=== PATIENT | female | born 2000 | race African-American/Black ===

== ENCOUNTER 2025-07-03 15:12 | Outpatient (CLI) | payer OTHER, SELFPAY ==
--- NOTE | ~2025-07-03 | US_ITS ---
EXAMINATION: US OB <=14 wk fetus w TV DATE: 07/03/2025 16:06 INDICATION: Threatened TECHNIQUE: Real-time transabdominal and transvaginal obstetric ultrasound. FINDINGS: No prior studies for comparison. The uterus measures 8.1 x 4.5 x 7.8 cm. There is an intrauterine gestational sac, with pole identified. The crown rump length measures 0.64 cm, which correlates with a estimated gestational age of 6 weeks 3 days. heart tones are identified measuring 133 BPM. Ovaries within normal limits. IMPRESSION: 1. SL IUP with an EGA of 6 weeks, 3 days (EDC by current ultrasound of 02/23/2026). Reviewed, dictated and finalized at location O. ICAL SERVICES TECH IMPRESSION: 1. SL IUP with an EGA of 6 weeks, 3 days (EDC by current ultrasound of ).
--- OUTSIDE RECORDS SUMMARY | 2025-07-03 16:50 | XMS_ITS | Patient Health Record ---
Author Organization [facility] Address [address] [place], [place] [id number] Care Team Providers Care Underwater Hunter Name Role Phone Gio Ureña Unavailable Unavailable Allergies Allergen (clinical drug ingredient) Drug/Non Drug Allergy documented on EMR Reaction Allergy Type Onset Date Status azithromycin Azithromycin Unknown Drug Allergy A ctive Reason For Referral No Information Medications Medication SIG (Take, Route, Frequency, Duration) Notes Start Date End Date Status NuvaRing Active Immunizations Vaccine Route Administration Date Status Comme nts Influenza, unspecified formulation Unknown 05/13/2023 A dministered Social History Tobacco Use: Social History Observation Description Date Details (start date - stop date) Never Smoker NA - NA Social History Tobacco Use: Social Info Question Answer Notes Tobacco Use/Smoking Tobacco use: nonsmoker Additional Details Category Social Info Options Details Drugs/Alcohol: Do you drink alcohol? Yes, Socially Plan Of Treatment No Information Insurance Providers Payer Name Payer Address Payer Phone Subscriber Number Group Number Insured Name Patient Relationship to Insured Coverage Start Date Coverage End Date [employer] O [address] [place], [place] [phone] [id number] Romulo Cruz Self - patient is the insured
--- OUTSIDE RECORDS SUMMARY | 2025-07-03 16:50 | XMS_ITS | Clinical Summary ---
Author Organization [facility] Address [address] [place] [address] Care Team Providers Care Monotype Operator Name Role Phone Unavailable Primary Care Provider Unavailabl e Social History Tobacco Use Types Packs/Day Years Used Date Smoking Tobacco: Never Assessed Comments Unknown Sex and Gender Information Value Date Recorded Sex Assigned at Not on file Legal Sex Female 2:43 PM [employer]IGHT [employer] Gender Identity Not on file Sexual Orientation Not on file Plan of Treatment Health Maintenance Due Date Last Done Comments Hepatitis C Virus (HCV) Screening 1998 TdaP Immunization 1998 Human Papillomavirus (HPV) Immunization (1 - 3-dose series) 2013 Hepatitis B Immunization (1 of 3 - 19+ 3-dose series) 2017 Influenza Immunization (#1) 2025 SARS-COV-2 Immunization ( - season) 2025 Respiratory Syncytial Virus (RSV) Immunization (Adult) (1 - 1-dose 75+ series) 2073 Meningococcal Immunization (ACWY) Aged Out No longer eligible based on patient's age to complete this topic Pneumococcal Immunization Combined Aged Out No longer eligible based on patient's age to complete this topic Rotavirus Immunization Aged Out No lo nger eligible based on patient's age to complete this topic
--- OUTSIDE RECORDS SUMMARY | 2025-07-03 16:51 | XMS_ITS | Data Portability ---
Author Organization [facility], [employer] Address [address] [address] Assessment Encounter Date Assessment Date Assessment LastModified by Organization Details LastModified Time 12/17/2020 12/17/2020 Patient presente d to office today for their Medicare Annual Wellness Visit. Education was provided on healthy nutrition, including a diet rich in fruits and vegetables, minimizing simple carbohydrates, salt, and saturated fats. Encouraged regular cardiovascular exercise such as walking at least 30 minutes daily, 5 times per week. Emphasized preventive health measures and educated pt on fall prevention and community-based lifestyle interventions to help reduce health risks and promote healthy living. Not available 12/17/2020 20:39:44 02/11/2022 02/11/2022 Recommended healthy nutrition, including a diet rich in fruits and vegetables, minimizing simple carbohydrates, salt, and saturated fats. Encouraged regular cardiovascular exercise such as walking at least 30 minutes daily, 5 times per week. Not available 02/11/2022 16:58:22 02/16/2023 02/16/2023 Recommends healthy nutrition, including a diet rich in fruits and vegetables, minimizing simple carbohydrates, salt, and saturated fats. Encouraged regular cardiovascular exercise such as walking at least 30 minutes daily, 5 times per week. Emphasized preventive health measures and educated pt on fall prevention and community-based lifestyle interventions to help reduce health risks and promote healthy living. Not available 02/16/2023 13:40:48 02/25/2024 02/25/2024 Patient presente d to office today for their Medicare Annual Wellness Visit. Education was provided on healthy nutrition, including a diet rich in fruits and vegetables, minimizing simple carbohydrates, salt, and saturated fats. Encouraged regular cardiovascular exercise such as walking at least 30 minutes daily, 5 times per week. Emphasized preventive health measures and educated pt on fall prevention and community-based lifestyle interventions to help reduce health risks and promote healthy living. Recommends healthy nutrition, including a diet rich in fruits and vegetables, minimizing simple carbohydrates, salt, and saturated fats. Encouraged regular cardiovascular exercise such as walking at least 30 minutes daily, 5 times per week. Emphasized preventive health measures and educated pt on fall prevention and community-based lifestyle interventions to help reduce health risks and promote healthy living. Not available 02/25/2024 17:33:55 Plan of Treatment Reminders Order Date Submit Date Provider Last Modified By Organization Details Last Modified Time Details Appointments None recorded. Lab lipid panel, serum 2023 024 [email or web address] [facility], [address], [address], [place], [address], 4 09:02:29 CMP, serum or plasma 2023 024 Wire [facility], [address], [address], [place], [address], 4 09:02:28 CBC w/ auto diff 2023 024 Wire [facility], [address], [address], [place], [address], 4 09:02:28 CT + NG + TV, RNA, unspecifie d specimen 2022 023 [employer] [facility], [address], [address], [place], [address], 3 13:54:02 RPR (rapid plasma reagin), titer, serum 2022 023 3TIER [facility], [address], [address], [place], [address], 3 13:54:01 hsv (1+2) igg Ab, serum 2022 023 [employer]TIER [facility], [address], [address], [place], [address], 3 13:54:00 hsv (1+2) igm Ab, quant, serum, reflex titer 2022 [facility], [address], [address], [place], [address], 3 13:53:58 hepatitis panel (A+B+C), acute, serum 2022 023 [facility], [address], [address], [place], [address], 3 09:58:38 HIV 1+2 Ab + HIV1 p24 Ag, quantitati ve immunoassa y, serum 2022 023 [facility], [address], [address], [place], [address], 3 09:58:39 CMP, serum or plasma [address], [address], [address], [place], [address], 3 09:10:08 lipid panel, serum [address], [address], [address], [place], [address], 3 09:10:08 CBC w/ auto diff [address], [address], [address], [place], [address], 3 09:10:09 CBC w/ auto diff 2021 022 [facility], [address], [address], [place], [address], 2 08:26:26 CMP, serum or plasma 2021 022 [facility] Jenn Rykert [facility], [address], [address], [place], [address], 2 08:26:26 lipid panel, serum 2021 022 [facility] Jenn Rykert [facility], [address], [address], [place], [address], 2 08:26:27 TSH + free T4, serum 2021 022 [facility] Jenn Rykert [facility], [address], [address], [place], [address], 2 08:26:27 CMP, serum or plasma 2020 021 [employer] [facility], [address], [address], [place], [address], 1 10:23:38 TSH + free T4, serum 2020 021 LUKE Jenn Rykert [facility], [address], [address], [place], [address], 1 10:23:37 T3, free, serum or plasma 2020 021 [employer] [facility], [address], [address], [place], [address], 1 10:23:39 iron + TIBC + ferritin, serum 2020 021 TAMPA Jenn Rykert [facility], [address], [address], [place], [address], 1 10:23:34 CBC w/ auto diff 2020 021 [facility], [address], [address], [place], [address], 1 10:23:38 CT + NG + TV, RNA, unspecifie d specimen 2020 021 [facility], [address], [address], [place], [address], 1 20:45:20 RPR (rapid plasma reagin), titer, serum 2020 021 [facility], [address], [address], [place], [address], 1 20:45:13 hsv (1+2) igg Ab, serum 2020 021 [facility], [address], [address], [place], [address], 1 20:45:14 hepatitis panel (A+B+C), acute, serum 2020 021 [facility], [address], [address], [place], [address], 1 10:23:35 HIV 1+2 Ab + HIV1 p24 Ag, quantitati ve immunoassa y, serum 2020 021 [facility], [address], [address], [place], [address], 1 10:23:36 hepatitis C virus Ab, serum 2020 021 [facility], [address], [address], [place], [address], 1 09:02:[address] referral 2023 024 [facility], [address], [place], [address], 5 08:06:[address] referral 2022 023 [facility], [address], [place], [address], 4 09:54:27 sleep medicine referral 2021 022 LUKE Paris MD, [address] [place], [address], 2 18:08:52 ENT referral 2020 021 LUKE Jones MD, [address], [place], [address], 1 21:21:[address] referral 2018 019 [email or web address] Not available 9 09:00:13 ENT referral 2018 019 LUKE Jones MD, [address], [place], [address], 9 11:04:30 Procedures None recorded. Surgeries None recorded. Imaging US, head + neck, soft tissue 2020 021 [facility] [address] [place], [address], 1 09:02:24 Medication Orders None recorded. Patient TargetsNo targets recorded. Patient Instructions Encounter Date Encounter Id Patient Instructions Last Modified By Organization Details Last Modified Time 09/20/2018 [id number] advised to lose weight Not available 09/20/2018 13:52:01 medicare preventive services guide Not available 09/20/2018 13:52:01 advance care planning: care instructions Not available 09/20/2018 13:52:01 12/17/2020 [id number] advised to lose weight Not available 12/17/2020 20:45:01 02/11/2022 [id number] advised to lose weight [email or web address] Not available 02/11/2022 17:02:19 02/16/2023 [id number] medicare preventive services guide [email or web address] Not available 02/16/2023 13:53:13 advance care planning: care instructions [facility] Not available 02/16/2023 13:53:14 Discussed and explained advance directives such as standard forms to the . Face to face discussion lasted for a duration of ___ minutes. [email or web address] Not available 02/16/2023 12:58:59 02/25/2024 [id number] Discussed and explained advance directives such as standard forms to the . Face to face discussion lasted for a duration of ___ minutes. [email or web address] Not available 02/25/2024 17:10:54 Reason for Referral ENT Referral for Ringing in ear Referring Physician: [facility], Encounter Date: 09/20/2018 Rad Tech Referral for Ta chycardia Referring Physician: [facility], Encounter Date: 09/20/2018 ENT Referral for Lymphadenop athy Referring Physician: Gio [facility], Encounter Date: 12/17/2020 Sleep Medicine Referral for Snoring Referring Physician: Gio [facility], Encounter Date: 02/11/2022 Spray Operator Referral for Sc reening for malignant neoplasm of cervix Referring Physician: [facility], Encounter Date: 02/16/2023 Spray Operator Referral for Sc reening for malignant neoplasm of cervix Referring Physician: Gio Ure[facility], Encounter Date: 02/25/2024 Results Created Date Observation Date Name Description Value Unit Range Abnormal Flag Note LastModifiedBy Organization Detail LastModifiedTime 12/05/1912/05/2018 lipid panel , serum cholesterol, total 226 mg/dL <200 high Not Available [employer] [facility] [address] [place], [address], 12/05/2018 07:58:29 12/05/1912/05/2018 lipid panel , serum HDL cholesterol 107 mg/dL >50 normal Not Available [facility] [employer] [address] [address] [place], [address], 12/05/2018 07:58:29 12/05/1912/05/2018 lipid panel , serum triglyceride s 77 mg/dL <150 normal Not Available Jenn [employer] [address] [address] [place], [address], 12/05/2018 07:58:29 12/05/1912/05/2018 lipid panel , serum LDL-choleste rol 102 mg/dL _(tami c) high Refer ence range : <100 Dayami able range <100 mg/dL for prima ry preve ntion ; <70 mg/dL for patie nts with CHD or diabe tic patie nts with > or = 2 CHD risk facto rs. LDL-C is now calcu lated using the Ines schultz-Hop kins reynold quintanilla n, which is a valid ated novel daniel robertson r accur acy than the Fried salty equat ion in the estim ation of LDL-C . Ines schultz SS et al. GUSTAVO. 2013; 310(1 9): 2061- 2068 (http ://ed ucati on.Qu Aneudy WhenU.com. com/f aq/FA Q164) Not Available [address] [address] [place], [address], 12/05/2018 07:58:29 12/05/1912/05/2018 lipid panel , serum chol/HDLC ratio 2.1 (calc ) <5.0 normal Not Available Jenn Rykert [address] [address] [place], [address], 12/05/2018 07:58:29 12/05/1912/05/2018 lipid panel , serum non HDL cholesterol 119 mg/dL _(tami c) <130 normal For patie nts with diabe jayson plus 1 major ASCVD risk facto r, treat ing to a non-H DL-C goal of <100 mg/dL (LDL- C of <70 mg/dL ) is consi dered a thera rolandoi c optio n. Not Available [address], [address], 12/05/2018 07:58:29 12/05/1912/05/2018 TSH + free T4, serum TSH 1.62 mIU/L normal Refer ence Range > or = 20 Years 0.40- 4.50 Pregn reno Range s First trime ster 0.26- 2.66 Secon d trime ster 0.55- 2.73 Third trime ster 0.43- 2.91 Not Available [address], [address], 12/05/2018 07:58:30 12/05/1912/05/2018 TSH + free T4, serum T4, free 1.3 NG/dL 0.8-1. 4 normal Not Available [address], [address], 12/05/2018 07:58:30 12/05/1912/05/2018 CMP, serum or plasm a glucose 83 mg/dL 65-99 normal Fasti ng refer ence inter alexi Not Available [address], [address], 12/05/2018 07:58:30 12/05/1912/05/2018 CMP, serum or plasm a urea nitrogen (BUN) 11 mg/dL 7-25 normal Not Available [address], [address], 12/05/2018 07:58:30 12/05/1912/05/2018 CMP, serum or plasm a creatinine 0.87 mg/dL 0.50-1 .10 normal Not Available [address], [address], 12/05/2018 07:58:30 12/05/1912/05/2018 CMP, serum or plasm a eGFR non-afr. citizen [place] 96 mL/mi n/1.7 3m2 > or = 60 normal Not Available [address], [address], 12/05/2018 07:58:30 12/05/19 19 12/05/2018 CMP, serum or plasm a eGFR 111 mL/mi n/1.7 3m2 > or = 60 normal Not Available [address], [address], 12/05/2018 07:58:30 12/05/19 19 12/05/2018 CMP, serum or plasm a BUN/creatini ne ratio NOT APPLIC ABLE (calc ) 6-22 Not Available [address], [address], 12/05/2018 07:58:30 12/05/19 19 12/05/2018 CMP, serum or plasm a sodium 137 mmol/ L 135-14 6 normal Not Available [address], [address], 12/05/2018 07:58:30 12/05/19 19 12/05/2018 CMP, serum or plasm a potassium 4.2 mmol/ L 3.5-5. 3 normal Not Available [address], [address], 12/05/2018 07:58:30 12/05/1912/05/2018 CMP, serum or plasm a chloride 105 mmol/ L 98-110 normal Not Available [address], [address], 12/05/2018 07:58:30 12/05/1912/05/2018 CMP, serum or plasm a carbon dioxide 22 mmol/ L 20-32 normal Not Available [address], [address], 12/05/2018 07:58:30 12/05/19 19 12/05/2018 CMP, serum or plasm a calcium 10.3 mg/dL 8.6-10 .2 high Not Available [address], [address], 12/05/2018 07:58:30 12/05/1912/05/2018 CMP, serum or plasm a protein, total 7.9 g/dL 6.1-8. 1 normal Not Available [address], [address], 12/05/2018 07:58:30 12/05/1912/05/2018 CMP, serum or plasm a albumin 4.5 g/dL 3.6-5. 1 normal Not Available [address], [address], 12/05/2018 07:58:30 12/05/1912/05/2018 CMP, serum or plasm a globulin 3.4 g/dL_ (calc ) 1.9-3. 7 normal Not Available [address], [address], 12/05/2018 07:58:30 12/05/1912/05/2018 CMP, serum or plasm a albumin/glob ulin ratio 1.3 (calc ) 1.0-2. 5 normal Not Available [address], [address], 12/05/2018 07:58:30 12/05/1912/05/2018 CMP, serum or plasm a bilirubin, total 0.6 mg/dL 0.2-1. 2 normal Not Available [address], [address], 12/05/2018 07:58:30 12/05/1912/05/2018 CMP, serum or plasm a alkaline phosphatase 66 U/L 33-115 normal Not Available [facility] [employer] [address], [address], 12/05/2018 07:58:30 12/05/1912/05/2018 CMP, serum or plasm a AST 14 U/L 10-30 normal Not Available [address], [address], 12/05/2018 07:58:30 12/05/19 19 12/05/2018 CMP, serum or plasm a ALT 8 U/L 6-29 normal Not Available [address], [address], 12/05/2018 07:58:30 12/05/1912/05/2018 CBC w/ auto diff white blood cell count 6.1 thous and/u L 3.8-10 .8 normal Not Available [address], [address], 12/05/2018 07:58:31 12/05/1912/05/2018 CBC w/ auto diff red blood cell count 5.34 juan josé on/uL 3.80-5 .10 high Not Available [address], [address], 12/05/2018 07:58:31 12/05/1912/05/2018 CBC w/ auto diff hemoglobin 14.2 g/dL 11.7-1 5.5 normal Not Available [address], [address], 12/05/2018 07:58:31 12/05/1912/05/2018 CBC w/ auto diff hematocrit 44.5 % 35.0-4 5.0 normal Not Available [address], [address], 12/05/2018 07:58:31 12/05/1912/05/2018 CBC w/ auto diff MCV 83.3 fL 80.0-1 00.0 normal Not Available [address], [address], 12/05/2018 07:58:31 12/05/19 19 12/05/2018 CBC w/ auto diff MCH 26.6 pg 27.0-3 3.0 low Not Available [address], [address], 12/05/2018 07:58:31 12/05/19 19 12/05/2018 CBC w/ auto diff MCHC 31.9 g/dL 32.0-3 6.0 low Not Available [address], [address], 12/05/2018 07:58:31 12/05/19 19 12/05/2018 CBC w/ auto diff RDW 13.6 % 11.0-1 5.0 normal Not Available [address], [address], 12/05/2018 07:58:31 12/05/1912/05/2018 CBC w/ auto diff platelet count 380 thous and/u L 140-40 0 normal Not Available [address], [address], 12/05/2018 07:58:31 12/05/1912/05/2018 CBC w/ auto diff MPV 10.3 fL 7.5-12 .5 normal Not Available [address], [address], 12/05/2018 07:58:31 12/05/1912/05/2018 CBC w/ auto diff absolute neutrophils 3953 cells /uL 1500-7 800 normal Not Available [address], [address], 12/05/2018 07:58:31 12/05/1912/05/2018 CBC w/ auto diff absolute lymphocytes 1745 cells /uL 850-39 00 normal Not Available [address], [address], 12/05/2018 07:58:31 12/05/19 19 12/05/2018 CBC w/ auto diff absolute monocytes 299 cells /uL 200-95 0 normal Not Available [address], [address], 12/05/2018 07:58:31 12/05/19 19 12/05/2018 CBC w/ auto diff absolute eosinophils 61 cells /uL 15-500 normal Not Available [address], [address], 12/05/2018 07:58:31 12/05/1912/05/2018 CBC w/ auto diff absolute basophils 43 cells /uL 0-200 normal Not Available [address], [address], 12/05/2018 07:58:31 12/05/1912/05/2018 CBC w/ auto diff neutrophils 64.8 % normal Not Available [address], [address], 12/05/2018 07:58:31 12/05/1912/05/2018 CBC w/ auto diff lymphocytes 28.6 % normal Not Available [address], [address], 12/05/2018 07:58:31 12/05/1912/05/2018 CBC w/ auto diff monocytes 4.9 % normal Not Available [address], [address], 12/05/2018 07:58:31 12/05/1912/05/2018 CBC w/ auto diff eosinophils 1.0 % normal Not Available [address], [address], 12/05/2018 07:58:31 12/05/19 19 12/05/2018 CBC w/ auto diff basophils 0.7 % normal Not Available [address], [address], 12/05/2018 07:58:31 12/05/19 19 12/05/2018 T3, free, serum or plasm a T3, free 2.7 pg/mL 3.0-4. [address] to have a fermin peraza copy faxed has been ignacio mendezedg [place] to: [phone] 1 Not Available [address], [address], 12/05/2018 07:58:31 12/20/19 21 12/21/2020 iron + TIBC + kumar tin, serum iron, total 97 mcg/d L 40-190 normal Not Available [address], [address], 12/21/2020 10:23:34 12/20/19 21 12/21/2020 iron + TIBC + kumar tin, serum iron binding capacity 407 mcg/d L_(ca lc) 250-45 0 normal Not Available [address], [address], 12/21/2020 10:23:34 12/20/19 21 12/21/2020 iron + TIBC + kumar tin, serum % saturation 24 %_(ca lc) 16-45 normal Not Available [address], [address], 12/21/2020 10:23:34 12/20/19 21 12/21/2020 iron + TIBC + kumar tin, serum ferritin 10 NG/mL 16-154 low Not Available [address], [address], 12/21/2020 10:23:34 12/20/19 21 12/21/2020 hepat itis panel (A+B+ C), acute , serum hepatitis A IgM NON-RE ACTIVE non-re active normal For addit ional infor avi garnica e refer to http: //edu catio n.que stdia gnost ics.c om/fa q/FAQ 202 (This link is being provi ded for infor julisa ambrose/ sofiya vizcarra purpo ses only. ) Not Available [address] [address] [place], [address], 12/21/2020 10:23:35 12/20/19 21 12/21/2020 hepat itis panel (A+B+ C), acute , serum hepatitis B surface antigen NON-RE ACTIVE non-re active normal Not Available [facility] [address] [address] [place], [address], 12/21/2020 10:23:35 12/20/19 21 12/21/2020 hepat itis panel (A+B+ C), acute , serum hepatitis B core antibody (IgM) NON-RE ACTIVE non-re active normal Not Available [facility] [address] [address] [place], [address], 12/21/2020 10:23:35 12/20/19 21 12/21/2020 hepat itis panel (A+B+ C), acute , serum hepatitis C antibody NON-RE ACTIVE non-re active normal Not Available [facility] [address] [address] [place], [address], 12/21/2020 10:23:35 12/20/1912/21/2020 hepat itis panel (A+B+ C), acute , serum index 0.01 <1.00 normal HCV antib geo was non-r eacti ve. There is no labor atory evide nce of HCV infec tion. In most cases , no furth er actio n is requi red. Howev er, if recen t HCV expos ure is suspe cted, a test for HCV RNA (test code 64026 ) is sugge sted. For addit ional infor matlucy n pleas e refer to http: //[facility] n.que stdia gnost ics.c om/fa q/FAQ 22v1 (This link is being provi ded for infor matio nal/ educa sami l purpo ses only. ) Not Available [employer] [facility] [address] [place], [address], 12/21/2020 10:23:35 12/20/19 21 12/21/2020 HIV 1+2 Ab + HIV1 p24 Ag, quant itati ve immun oassa y, serum HIV Ag/Ab, 4TH gen NON-RE ACTIVE non-re active normal HIV-1 antig en and HIV-1 /HIV- 2 antib odies were not detec shubham. There is no labor atory evide nce of HIV infec tion. PLEAS E NOTE: This infor julisa n has been discl osed to you from recor ds whose confi denti ality may be prote cted by state law. If your state requi res such prote ction , then the state law prohi bits you from edda g any furth er discl osure of the infor matio n witho ut the speci fic writt en conse nt of the perso n to whom it perta ins, or as other garcia permi tted by law. A gener al autho rizat ion for the relea se of medic al or other infor matio n is NOT suffi cient for this purpo se. For addit ional infor matio n pleas e refer to http: //[facility] shandra schultz.que stdia gnost ics.c om/fa q/FAQ 106 (This link is being provi ded for infor matio nal/ educa sami l purpo ses only. ) The perfo rmanc e of this assay has not been clini blair valid ated in patie nts less than 2 years old. Not Available [facility] [employer] [facility] [address] [address], [place], [address], 12/21/2020 10:23:36 12/20/1912/21/2020 TSH + free T4, serum TSH 1.31 mIU/L normal Refer ence Range > or = 20 Years 0.40- 4.50 Pregn reno Range s First trime ster 0.26- 2.66 Secon d trime ster 0.55- 2.73 Third trime ster 0.43- 2.91 Not Available [address], [address], 12/21/2020 10:23:37 12/20/19 21 12/21/2020 TSH + free T4, serum T4, free 1.3 NG/dL 0.8-1. 8 normal Not Available [address], [address], 12/21/2020 10:23:37 12/20/19 21 12/21/2020 CMP, serum or plasm a glucose 83 mg/dL 65-99 normal Fasti ng refer ence inter alexi Not Available [address], [address], 12/21/2020 10:23:38 12/20/19 21 12/21/2020 CMP, serum or plasm a urea nitrogen (BUN) 10 mg/dL 7-25 normal Not Available [address], [address], 12/21/2020 10:23:38 12/20/1912/21/2020 CMP, serum or plasm a creatinine 0.79 mg/dL 0.50-1 .10 normal Not Available [address], [address], 12/21/2020 10:23:38 12/20/19 21 12/21/2020 CMP, serum or plasm a eGFR non-afr. citizen [place] 106 mL/mi n/1.7 3m2 > or = 60 normal Not Available [address], [address], 12/21/2020 10:23:38 12/20/19 21 12/21/2020 CMP, serum or plasm a eGFR 123 mL/mi n/1.7 3m2 > or = 60 normal Not Available [address], [address], 12/21/2020 10:23:38 12/20/19 21 12/21/2020 CMP, serum or plasm a BUN/creatini ne ratio NOT APPLIC ABLE (calc ) 6-22 Not Available [address], [address], 12/21/2020 10:23:38 12/20/19 21 12/21/2020 CMP, serum or plasm a sodium 139 mmol/ L 135-14 6 normal Not Available [address], [address], 12/21/2020 10:23:38 12/20/19 21 12/21/2020 CMP, serum or plasm a potassium 4.1 mmol/ L 3.5-5. 3 normal Not Available [address], [address], 12/21/2020 10:23:38 12/20/19 21 12/21/2020 CMP, serum or plasm a chloride 106 mmol/ L 98-110 normal Not Available [address], [address], 12/21/2020 10:23:38 12/20/19 21 12/21/2020 CMP, serum or plasm a carbon dioxide 25 mmol/ L 20-32 normal Not Available [address], [address], 12/21/2020 10:23:38 12/20/19 21 12/21/2020 CMP, serum or plasm a calcium 9.4 mg/dL 8.6-10 .2 normal Not Available [address], [address], 12/21/2020 10:23:38 12/20/19 21 12/21/2020 CMP, serum or plasm a protein, total 7.1 g/dL 6.1-8. 1 normal Not Available [address] [place], [address], 12/21/2020 10:23:38 12/20/19 21 12/21/2020 CMP, serum or plasm a albumin 4.1 g/dL 3.6-5. 1 normal Not Available [address], [address], 12/21/2020 10:23:38 12/20/19 21 12/21/2020 CMP, serum or plasm a globulin 3.0 g/dL_ (calc ) 1.9-3. 7 normal Not Available [address], [address], 12/21/2020 10:23:38 12/20/19 21 12/21/2020 CMP, serum or plasm a albumin/glob ulin ratio 1.4 (calc ) 1.0-2. 5 normal Not Available [address], [address], 12/21/2020 10:23:38 12/20/19 21 12/21/2020 CMP, serum or plasm a bilirubin, total 0.4 mg/dL 0.2-1. 2 normal Not Available [address], [address], 12/21/2020 10:23:38 12/20/19 21 12/21/2020 CMP, serum or plasm a alkaline phosphatase 60 U/L 31-125 normal Not Available [facility] [employer] [address], [address], 12/21/2020 10:23:38 12/20/19 21 12/21/2020 CMP, serum or plasm a AST 16 U/L 10-30 normal Not Available [address], [address], 12/21/2020 10:23:38 12/20/19 21 12/21/2020 CMP, serum or plasm a ALT 8 U/L 6-29 normal Not Available [address], [address], 12/21/2020 10:23:38 12/20/19 21 12/21/2020 CBC w/ auto diff white blood cell count 5.7 thous and/u L 3.8-10 .8 normal Not Available [address], [address], 12/21/2020 10:23:38 12/20/19 21 12/21/2020 CBC w/ auto diff red blood cell count 4.96 juan josé on/uL 3.80-5 .10 normal Not Available [address], [address], 12/21/2020 10:23:38 12/20/19 21 12/21/2020 CBC w/ auto diff hemoglobin 14.0 g/dL 11.7-1 5.5 normal Not Available [address], [address], 12/21/2020 10:23:38 12/20/19 21 12/21/2020 CBC w/ auto diff hematocrit 42.0 % 35.0-4 5.0 normal Not Available [address], [address], 12/21/2020 10:23:38 12/20/19 21 12/21/2020 CBC w/ auto diff MCV 84.7 fL 80.0-1 00.0 normal Not Available [address], [address], 12/21/2020 10:23:38 12/20/19 21 12/21/2020 CBC w/ auto diff MCH 28.2 pg 27.0-3 3.0 normal Not Available [address], [address], 12/21/2020 10:23:38 12/20/19 21 12/21/2020 CBC w/ auto diff MCHC 33.3 g/dL 32.0-3 6.0 normal Not Available [address], [address], 12/21/2020 10:23:38 12/20/19 21 12/21/2020 CBC w/ auto diff RDW 12.8 % 11.0-1 5.0 normal Not Available [address], [address], 12/21/2020 10:23:38 12/20/19 21 12/21/2020 CBC w/ auto diff platelet count 337 thous and/u L 140-40 0 normal Not Available [address], [address], 12/21/2020 10:23:38 12/20/19 21 12/21/2020 CBC w/ auto diff MPV 10.1 fL 7.5-12 .5 normal Not Available [address], [address], 12/21/2020 10:23:38 12/20/19 21 12/21/2020 CBC w/ auto diff absolute neutrophils 2599 cells /uL 1500-7 800 normal Not Available [address], [address], 12/21/2020 10:23:38 12/20/19 21 12/21/2020 CBC w/ auto diff absolute lymphocytes 2514 cells /uL 850-39 00 normal Not Available [address], [address], 12/21/2020 10:23:38 12/20/19 21 12/21/2020 CBC w/ auto diff absolute monocytes 479 cells /uL 200-95 0 normal Not Available [address], [address], 12/21/2020 10:23:38 12/20/19 21 12/21/2020 CBC w/ auto diff absolute eosinophils 80 cells /uL 15-500 normal Not Available [address], [address], 12/21/2020 10:23:38 12/20/19 21 12/21/2020 CBC w/ auto diff absolute basophils 29 cells /uL 0-200 normal Not Available [address], [address], 12/21/2020 10:23:38 12/20/19 21 12/21/2020 CBC w/ auto diff neutrophils 45.6 % normal Not Available [address], [address], 12/21/2020 10:23:38 12/20/19 21 12/21/2020 CBC w/ auto diff lymphocytes 44.1 % normal Not Available [address], [address], 12/21/2020 10:23:38 12/20/19 21 12/21/2020 CBC w/ auto diff monocytes 8.4 % normal Not Available [address], [address], 12/21/2020 10:23:38 12/20/19 21 12/21/2020 CBC w/ auto diff eosinophils 1.4 % normal Not Available [address], [address], 12/21/2020 10:23:38 12/20/19 21 12/21/2020 CBC w/ auto diff basophils 0.5 % normal Not Available [address], [address], 12/21/2020 10:23:38 12/20/19 21 12/21/2020 T3, free, serum or plasm a T3, free 3.0 pg/mL 2.3-4. 2 normal Not Available [address] [address] [place], [address], 12/21/2020 10:23:39 12/20/19 21 12/21/2020 CT + NG RNA, PCR, unspe cifie d speci men chlamydia trachomatis RNA, tma, urogenital NOT DETECT ED not detect ed normal Not Available [facility] [address], [address], 12/21/2020 10:23:40 12/20/19 21 12/21/2020 CT + NG RNA, PCR, unspe cifie d speci men neisseria gonorrhoeae RNA, tma, urogenital NOT DETECT ED not detect ed normal Not Available [facility] [address], [address], 12/21/2020 10:23:40 12/20/19 21 12/21/2020 CT + NG RNA, PCR, unspe cifie d speci men comment The alie tical perfo rmanc e chris cteri stics of this assay , when used to test SureP ath(T M) speci mens have been deter mined by [facility]. The modif icati ons have not been clear ed or appro zander by the FDA. This assay has been valid ated pursu ant to the CLIA regul ation s and is used for clini tami purpo ses. For addit ional infor avi garnica e refer to https ://ed ucati on.qu estdi WhenU.com. com/f aq/FA Q154 (This link is being provi ded for infor julisa schultz/ sofiya vizcarra purpo ses only. ) Not Available [facility] [address], [address], 12/21/2020 10:23:40 11/20/19 22 11/20/2021 Chlam ydia trach omati s+Nei sseri a gonor rhoea e DNA [Pres ence] in Speci men by WILY with probe detec tion chlamydia trachomatis CT neg text: negati ve If both Pap and Endoc ervic al swabs are colle cted, the Prese rvCyt Solut ion liqui d Pap speci men must be colle cted befor e the endoc ervic al swab speci men. Not Available Not Available 02/02/2025 03:40:21 11/20/19 22 11/20/2021 Chlam ydia trach omati s+Nei sseri a gonor rhoea e DNA [Pres ence] in Speci men by WILY with probe detec tion neisseria gonorrhoeae GC neg text: negati ve If both Pap and Endoc ervic al swabs are colle cted, the Prese rvCyt Solut ion liqui d Pap speci men must be colle cted befor e the endoc ervic al swab speci men. Not Available Not Available 02/02/2025 03:40:21 02/12/20 22 02/12/2022 Reagi n Ab [Pres ence] in Serum by RPR reagin Ab [presence] in serum by RPR NON-RE ACTIVE text: non-re active Not Available Not Available 02/02/2025 03:40:21 02/12/20 22 02/12/2022 HIV 1+2 Ab+HI V1 p24 Ag [Unit s/vol ume] in Serum or Plasm a by Immun oassa y HIV 1+2 Ab+HIV1 P24 Ag [presence] in serum or plasma by immunoassay NON-RE ACTIVE text: non-re active HIV-1 antig en and HIV-1 /HIV- 2 antib odies were not detec shubham. There is no labor atory evide nce of HIV infec tion. PLEAS E NOTE: This infor matio n has been discl osed to you from recor ds whose confi denti ality may be prote cted by state law. If your state requi res such prote ction , then the state law prohi bits you from edda alfred any furth er discl osure of the infor matio n witho ut the speci fic writt en conse nt of the perso n to whom it perta ins, or as other garcia permi tted by law. A gener al autho rizat ion for the relea se of medic al or other infor matio n is NOT suffi cient for this purpo se. For addit ional infor matio n pleas e refer to http: //[facility] shandra cadena stdia gnost ics.c om/fa q/FAQ 106 (This link is being provi ded for infor matio nal/ educa sami l purpo ses only. ) The perfo rmanc e of this assay has not been clini blair valid ated in patie nts less than 2 years old. Not Available Not Available 02/02/2025 03:40:21 02/12/20 22 02/12/2022 Hepat itis C virus Ab [Unit s/vol ume] in Serum hepatitis C virus Ab [presence] in serum or plasma by immunoassay NON-RE ACTIVE text: non-re active Not Available Not Available 02/02/2025 03:40:21 02/12/20 22 02/12/2022 Hepat itis C virus Ab [Unit s/vol ume] in Serum hepatitis C virus Ab signal/cutof f in serum or plasma by immunoassay 0.01 text: <1.00 HCV antib geo was non-r eacti ve. There is no labor atory evide nce of HCV infec tion. In most cases , no furth er actio n is requi red. Howev er, if recen t HCV expos ure is suspe cted, a test for HCV RNA (test code 57465 ) is sugge sted. For addit ional infor matio n pleas e refer to http: //[facility] shandra cadena stdia gnost ics.c om/fa q/FAQ 22v1 (This link is being provi ded for infor matio nal/ educa sami l purpo ses only. ) Not Available Not Available 02/02/2025 03:40:21 02/12/20 22 02/12/2022 Hepat itis B virus surfa ce Ag [Pres ence] in Serum hepatitis B virus surface Ag [presence] in serum or plasma by immunoassay NON-RE ACTIVE text: non-re active Not Available Not Available 02/02/2025 03:40:21 02/12/20 22 02/12/2022 Bacte rial vagin osis and vagin itis DNA panel - Vagin al fluid by Probe with signa l ampli ficat ion bacterial vaginosis BV neg text: negati ve Not Available Not Available 02/02/2025 03:40:21 02/12/20 22 02/12/2022 Bacte rial vagin osis and vagin itis DNA panel - Vagin al fluid by Probe with signa l ampli ficat ion acosta species C. spp POS text: negati ve abnormal Not Available Not Available 02/02/2025 03:40:21 02/12/20 22 02/12/2022 Bacte rial vagin osis and vagin itis DNA panel - Vagin al fluid by Probe with signa l ampli ficat ion acosta glabrata C. gla neg text: negati ve Not Available Not Available 02/02/2025 03:40:21 02/12/20 22 02/12/2022 Bacte rial vagin osis and vagin itis DNA panel - Vagin al fluid by Probe with signa l ampli ficat ion trichomonas vaginalis CV/TV TRICH neg text: negati ve Not Available Not Available 02/02/2025 03:40:21 02/12/20 22 02/12/2022 Bacte rial vagin osis and vagin itis DNA panel - Vagin al fluid by Probe with signa l ampli ficat ion chlamydia trachomatis CT neg text: negati ve This repor t is inten ded for us in clini tami monit oring and manag ement of [facility] nts. It is not inten ded for use in medic al-le gal appli catio n. Not Available Not Available 02/02/2025 03:40:21 02/12/20 22 02/12/2022 Bacte rial vagin osis and vagin itis DNA panel - Vagin al fluid by Probe with signa l ampli ficat ion neisseria gonorrhoeae GC neg text: negati ve This repor t is inten ded for us in clini tami monit oring and [facility]. It is not inten ded for use in medic al-le gal appli catio n. Not Available Not Available 02/02/2025 03:40:21 03/07/20 22 03/08/2022 LIPID PANEL , STAND OG cholesterol, total 228 mg/dL <200 high Not Available [facility] [address] [address] [place], [address], 03/08/2022 09:43:42 03/07/20 22 03/08/2022 LIPID PANEL , STAND OG HDL cholesterol 112 mg/dL > or = 50 normal Not Available [facility] [address] [address] [place], [address], 03/08/2022 09:43:42 03/07/20 22 03/08/2022 LIPID PANEL , STAND OG triglyceride s 44 mg/dL <150 normal Not Available [facility] [address] [address] [place], [address], 03/08/2022 09:43:42 03/07/20 22 03/08/2022 LIPID PANEL , STAND OG LDL-choleste rol 103 mg/dL _(tami c) high Refer ence range : <100 Dayami able range <100 mg/dL for prima ry preve ntion ; <70 mg/dL for patie nts with CHD or diabe tic patie nts with > or = 2 CHD risk facto rs. LDL-C is now calcu lated using the Ines schultz-Hop kins twinu dwight n, which is a valid ated novel metho d narayani richardson vázquezte r accur acy than the Fried salty equat ion in the estim ation of LDL-C . Ines schultz SS et al. GUSTAVO. 2013; 310(1 9): 2061- 2068 (http ://ed ucati on.Qu Aneudy WhenU.com. com/f aq/FA Q164) Not Available [facility] [address] [place], [address], 03/08/2022 09:43:42 03/07/20 22 03/08/2022 LIPID PANEL , STAND OG chol/HDLC ratio 2.0 (calc ) <5.0 normal Not Available [facility] [address] [place], [address], 03/08/2022 09:43:42 03/07/20 22 03/08/2022 LIPID PANEL , STAND OG non HDL cholesterol 116 mg/dL _(tami c) <130 normal For patie nts with diabe jayson plus 1 major ASCVD risk facto r, treat ing to a non-H DL-C goal of <100 mg/dL (LDL- C of <70 mg/dL ) is consi tamrad a thera peesperanza c optio n. Not Available [address], [address], 03/08/2022 09:43:42 03/07/20 22 03/08/2022 TSH+F REE T4 TSH 1.38 mIU/L normal Refer ence Range > or = 20 Years 0.40- 4.50 Pregn reno Range s First trime ster 0.26- 2.66 Secon d trime ster 0.55- 2.73 Third trime ster 0.43- 2.91 Not Available [address], [address], 03/08/2022 09:43:42 03/07/20 22 03/08/2022 TSH+F REE T4 T4, free 1.3 NG/dL 0.8-1. 8 normal Not Available [address], [address], 03/08/2022 09:43:42 03/07/20 22 03/08/2022 COMPR EHENS TRIPP METAB OLIC PANEL glucose 85 mg/dL 65-99 normal Fasti ng refer ence inter alexi Not Available [address] [place], [address], 03/08/2022 09:43:43 03/07/20 22 03/08/2022 COMPR EHENS TRIPP METAB OLIC PANEL urea nitrogen (BUN) 9 mg/dL 7-25 normal Not Available [address], [address], 03/08/2022 09:43:43 03/07/20 22 03/08/2022 COMPR EHENS TRIPP METAB OLIC PANEL creatinine 0.86 mg/dL 0.50-0 .96 normal Not Available [address], [address], 03/08/2022 09:43:43 03/07/20 22 03/08/2022 COMPR EHENS TRIPP METAB OLIC PANEL eGFR 97 mL/mi n/1.7 3m2 > or = 60 normal The eGFR is based on the CKD-E PI 2020 equat ion. To calcu late the new eGFR from a previ ous Creat inine or Cysta tin C resul t, go to https ://doug olson.sharon donaldson/cinthia lainez s/ kdoqi /gfr% 5Fcal culat or Not Available [address], [address], 03/08/2022 09:43:43 03/07/20 22 03/08/2022 COMPR EHENS TRIPP METAB OLIC PANEL BUN/creatini ne ratio NOT APPLIC ABLE (calc ) 6-22 Not Available [address], [address], 03/08/2022 09:43:43 03/07/20 22 03/08/2022 COMPR EHENS TRIPP METAB OLIC PANEL sodium 140 mmol/ L 135-14 6 normal Not Available [address], [address], 03/08/2022 09:43:43 03/07/20 22 03/08/2022 COMPR EHENS TRIPP METAB OLIC PANEL potassium 4.1 mmol/ L 3.5-5. 3 normal Not Available [address], [address], 03/08/2022 09:43:43 03/07/20 22 03/08/2022 COMPR EHENS TRIPP METAB OLIC PANEL chloride 106 mmol/ L 98-110 normal Not Available [address], [address], 03/08/2022 09:43:43 03/07/20 22 03/08/2022 COMPR EHENS TRIPP METAB OLIC PANEL carbon dioxide 25 mmol/ L 20-32 normal Not Available [address], [address], 03/08/2022 09:43:43 03/07/20 22 03/08/2022 COMPR EHENS TRIPP METAB OLIC PANEL calcium 9.7 mg/dL 8.6-10 .2 normal Not Available [address], [address], 03/08/2022 09:43:43 03/07/20 22 03/08/2022 COMPR EHENS TRIPP METAB OLIC PANEL protein, total 7.3 g/dL 6.1-8. 1 normal Not Available [address], [address], 03/08/2022 09:43:43 03/07/20 22 03/08/2022 COMPR EHENS TRIPP METAB OLIC PANEL albumin 4.4 g/dL 3.6-5. 1 normal Not Available [address], [address], 03/08/2022 09:43:43 03/07/20 22 03/08/2022 COMPR EHENS TRIPP METAB OLIC PANEL globulin 2.9 g/dL_ (calc ) 1.9-3. 7 normal Not Available [address], [address], 03/08/2022 09:43:43 03/07/20 22 03/08/2022 COMPR EHENS TRIPP METAB OLIC PANEL albumin/glob ulin ratio 1.5 (calc ) 1.0-2. 5 normal Not Available [address], [address], 03/08/2022 09:43:43 03/07/20 22 03/08/2022 COMPR EHENS TRIPP METAB OLIC PANEL bilirubin, total 0.7 mg/dL 0.2-1. 2 normal Not Available [address], [address], 03/08/2022 09:43:43 03/07/20 22 03/08/2022 COMPR EHENS TRIPP METAB OLIC PANEL alkaline phosphatase 67 U/L 31-125 normal Not Available [address], [address], 03/08/2022 09:43:43 03/07/20 22 03/08/2022 COMPR EHENS TRIPP METAB OLIC PANEL AST 15 U/L 10-30 normal Not Available [address], [address], 03/08/2022 09:43:43 03/07/20 22 03/08/2022 COMPR EHENS TRIPP METAB OLIC PANEL ALT 9 U/L 6-29 normal Not Available [address], [address], 03/08/2022 09:43:43 03/07/20 22 03/08/2022 CBC (INCL UDES DIFF/ PLT) white blood cell count 4.6 thous and/u L 3.8-10 .8 normal Not Available [address], [address], 03/08/2022 09:43:44 03/07/20 22 03/08/2022 CBC (INCL UDES DIFF/ PLT) red blood cell count 5.20 juan josé on/uL 3.80-5 .10 high Not Available [address], [address], 03/08/2022 09:43:44 03/07/20 22 03/08/2022 CBC (INCL UDES DIFF/ PLT) hemoglobin 14.6 g/dL 11.7-1 5.5 normal Not Available [address], [address], 03/08/2022 09:43:44 03/07/20 22 03/08/2022 CBC (INCL UDES DIFF/ PLT) hematocrit 45.4 % 35.0-4 5.0 high Not Available [address], [address], 03/08/2022 09:43:44 03/07/20 22 03/08/2022 CBC (INCL UDES DIFF/ PLT) MCV 87.3 fL 80.0-1 00.0 normal Not Available [address], [address], 03/08/2022 09:43:44 03/07/20 22 03/08/2022 CBC (INCL UDES DIFF/ PLT) MCH 28.1 pg 27.0-3 3.0 normal Not Available [address], [address], 03/08/2022 09:43:44 03/07/20 22 03/08/2022 CBC (INCL UDES DIFF/ PLT) MCHC 32.2 g/dL 32.0-3 6.0 normal Not Available [address], [address], 03/08/2022 09:43:44 03/07/20 22 03/08/2022 CBC (INCL UDES DIFF/ PLT) RDW 13.1 % 11.0-1 5.0 normal Not Available [address], [address], 03/08/2022 09:43:44 03/07/20 22 03/08/2022 CBC (INCL UDES DIFF/ PLT) platelet count 331 thous and/u L 140-40 0 normal Not Available [address], [address], 03/08/2022 09:43:44 03/07/20 22 03/08/2022 CBC (INCL UDES DIFF/ PLT) MPV 10.0 fL 7.5-12 .5 normal Not Available [address], [address], 03/08/2022 09:43:44 03/07/20 22 03/08/2022 CBC (INCL UDES DIFF/ PLT) absolute neutrophils 2318 cells /uL 1500-7 800 normal Not Available [address], [address], 03/08/2022 09:43:44 03/07/20 22 03/08/2022 CBC (INCL UDES DIFF/ PLT) absolute lymphocytes 1987 cells /uL 850-39 00 normal Not Available [address], [address], 03/08/2022 09:43:44 03/07/20 22 03/08/2022 CBC (INCL UDES DIFF/ PLT) absolute monocytes 212 cells /uL 200-95 0 normal Not Available [address], [address], 03/08/2022 09:43:44 03/07/20 22 03/08/2022 CBC (INCL UDES DIFF/ PLT) absolute eosinophils 51 cells /uL 15-500 normal Not Available [address], [address], 03/08/2022 09:43:44 03/07/20 22 03/08/2022 CBC (INCL UDES DIFF/ PLT) absolute basophils 32 cells /uL 0-200 normal Not Available [address], [address], 03/08/2022 09:43:44 03/07/20 22 03/08/2022 CBC (INCL UDES DIFF/ PLT) neutrophils 50.4 % normal Not Available [address] [place], [address], 03/08/2022 09:43:44 03/07/20 22 03/08/2022 CBC (INCL UDES DIFF/ PLT) lymphocytes 43.2 % normal Not Available [facility] [address], [address], 03/08/2022 09:43:44 03/07/20 22 03/08/2022 CBC (INCL UDES DIFF/ PLT) monocytes 4.6 % normal Not Available [facility] [address] [address] [place], [address], 03/08/2022 09:43:44 03/07/20 22 03/08/2022 CBC (INCL UDES DIFF/ PLT) eosinophils 1.1 % normal Not Available [facility] [address], [address], 03/08/2022 09:43:44 03/07/20 22 03/08/2022 CBC (INCL UDES DIFF/ PLT) basophils 0.7 % normal Not Available [facility] [address], [address], 03/08/2022 09:43:44 03/07/20 22 03/12/2022 Tissu e Patho logy biops y repor t pathologist name Caren ann M.D., Board Certi fied in Anato lela Patho logy and Clini tami Patho logy [phone] (elec troni c signa ture) Not Available Not Available 02/02/2025 03:40:21 03/07/20 22 03/12/2022 Tissu e Patho logy biops y repor t pathology report comments [interpretat ion] narrative Cyto/ Histo corre latio n canno t be perfo rmed since the tissu e is predo minan tly ectoc ervic al in origi n and may not be repre senta tive of all downey withi n the trans forma tion zone. Pleas e corre late and follo w clini blair . Not Available Not Available 02/02/2025 03:40:21 03/07/20 22 03/12/2022 Tissu e Patho logy biops y repor t specimen source identified Endoc ervix , curet tage Not Available Not Available 02/02/2025 03:40:21 03/07/20 22 03/12/2022 Tissu e Patho logy biops y repor t pathology report gross observation narrative Speci men is recei zander in forma queenie, label ed with multi ple patie nt ident ifier s and consi sts of multi ple fragm ents of mucoi d mater ial aggre gatin g to 2.0 x 1.0 x 0.1 cm, irreg ular in shape and yung-b rown in color . The speci men is entir thu submi tted in one casse tte. Gross exam( s) perfo rmed at: [facility] [address] [place] [address] [place] [id number] Labor atory Direc tor: MARKY Ann MD Not Available Not Available 02/02/2025 03:40:21 03/07/20 22 03/12/2022 Tissu e Patho logy biops y repor t pathology report final diagnosis narrative Fragm ents of benig n squam ous epith elium with mucus and blood ; and scant endoc ervic al epith elium . Not Available Not Available 02/02/2025 03:40:21 03/07/20 22 03/12/2022 Tissu e Patho logy biops y repor t specimen source identified Cervi x, 7 o'joni ck, biops y Not Available Not Available 02/02/2025 03:40:21 03/07/20 22 03/12/2022 Tissu e Patho logy biops y repor t pathology report gross observation narrative Speci men is recei zander in forma queenie, label ed with multi ple patie nt ident ifier s and consi sts of one fragm ent of tissu e measu ring 0.5 x 0.3 x 0.2 cm, irreg ular in shape and yello w-whi te in color . The speci men is entir thu submi tted in one casse tte. Not Available Not Available 02/02/2025 03:40:21 03/07/20 22 03/12/2022 Tissu e Patho logy biops y repor t pathology report final diagnosis narrative Biops y of squam ous mucos a with no evide nce of dyspl iliana. Not Available Not Available 02/02/2025 03:40:21 03/07/20 22 03/12/2022 Tissu e Patho logy biops y repor t specimen source identified Cervi x, 4 o'joni ck, biops y Not Available Not Available 02/02/2025 03:40:21 03/07/20 22 03/12/2022 Tissu e Patho logy biops y repor t pathology report gross observation narrative Speci men is recei zander in forma queenie, label ed with multi ple patie nt ident ifier s and consi sts of one fragm ent of tissu e measu ring 0.5 x 0.4 x 0.2 cm, irreg ular in shape and yello w-whi te in color . The speci men is entir tuh submi tted in one casse tte. Not Available Not Available 02/02/2025 03:40:21 03/07/20 22 03/12/2022 Tissu e Patho logy biops y repor t pathology report final diagnosis narrative Biops y of squam ous mucos a with no evide nce of dyspl iliana. Not Available Not Available 02/02/2025 03:40:21 07/02/20 22 07/08/2022 Chlam ydia trach omati s+Nei sseri a gonor rhoea e DNA [Pres ence] in Speci men by WILY with probe detec tion chlamydia trachomatis CT neg text: negati ve This repor t is inten ded for us in clini tami monit oring and manag ement of patie nts. It is not inten ded for use in medic al-le gal appli catio n. Not Available Not Available 02/02/2025 03:40:21 07/02/20 22 07/08/2022 Chlam ydia trach omati s+Nei sseri a gonor rhoea e DNA [Pres ence] in Speci men by WILY with probe detec tion neisseria gonorrhoeae GC neg text: negati ve This repor t is inten ded for us in clini tami monit oring and manag ement of patie nts. It is not inten ded for use in medic al-le gal appli catio n. Not Available Not Available 02/02/2025 03:40:21 06/20/20 23 06/21/2023 LIPID PANEL , STAND OG cholesterol, total 232 mg/dL <200 high Not Available [facility] [address] [address] [place], [address], 06/21/2023 09:58:38 06/20/2006/21/2023 LIPID PANEL , STAND OG HDL cholesterol 92 mg/dL > or = 50 normal Not Available [facility] [address] [address] [place], [address], 06/21/2023 09:58:38 06/20/20 23 06/21/2023 LIPID PANEL , STAND OG triglyceride s 66 mg/dL <150 normal Not Available [facility] [address] [address] [place], [address], 06/21/2023 09:58:38 06/20/2006/21/2023 LIPID PANEL , STAND OG LDL-choleste rol 124 mg/dL _(tami c) high Refer ence range : <100 Dayami able range <100 mg/dL for prima ry preve ntion ; <70 mg/dL for patie nts with CHD or diabe tic patie nts with > or = 2 CHD risk facto rs. LDL-C is now calcu lated using the Ines n-Hop kins twinu dwight n, which is a valid ated novel daniel henderson than the Fried salty equat ion in the estim ation of LDL-C . Ines schultz SS et al. GUSTAVO. 2013; 310(1 9): 2061- 2068 (http ://ed ucati on.Qu adityaDi WhenU.com. com/f aq/FA Q164) Not Available [facility] [address] [address] [address], [place], [address], 06/21/2023 09:58:38 06/20/20 23 06/21/2023 LIPID PANEL , STAND OG chol/HDLC ratio 2.5 (calc ) <5.0 normal Not Available [facility] [address] [address] [place], [address], 06/21/2023 09:58:38 06/20/20 23 06/21/2023 LIPID PANEL , STAND OG non HDL cholesterol 140 mg/dL _(tami c) <130 high For patie nts with diabe jayson plus 1 major ASCVD risk facto r, treat ing to a non-H DL-C goal of <100 mg/dL (LDL- C of <70 mg/dL ) is consi dered a thera peutelizabeth c optio n. Not Available [facility] [address] [address] [place], [address], 06/21/2023 09:58:38 06/20/20 23 06/21/2023 HEPAT ITIS PANEL , ACUTE W/REF ROYCE TO CONFI RMATI ON hepatitis A IgM NON-RE ACTIVE non-re active normal For addit ional infor avi garnica e refer to http: //[employer] catlucy n.que stdia gnost ics.c om/fa q/FAQ 202 (This link is being provi ded for infor matio nal/ educa sami l purpo ses only. ) Not Available [facility] [address] [address] [address], [place], [address], 06/21/2023 09:58:38 06/20/20 23 06/21/2023 HEPAT ITIS PANEL , ACUTE W/REF ROYCE TO CONFI RMATI ON hepatitis B surface antigen NON-RE ACTIVE non-re active normal For addit ional infor matavi amador e refer to http: //edu catlucy n.que stdia gnost ics.c om/fa q/FAQ 202 (This link is being provi ded for infor matio nal/ educa sami l purpo ses only. ) Not Available [facility] [address] [address] [place], [address], 06/21/2023 09:58:38 06/20/20 23 06/21/2023 HEPAT ITIS PANEL , ACUTE W/REF ROYCE TO CONFI RMATI ON hepatitis B core antibody (IgM) NON-RE ACTIVE non-re active normal For addit ional infor julisa schultz, avi e refer to http: //formerly [facility] n.que stdia gnost ics.c om/fa q/FAQ 202 (This link is being provi ded for infor matio nal/ educa sami l purpo ses only. ) Not Available [facility] [address] [address] [place], [address], 06/21/2023 09:58:38 06/20/20 23 06/21/2023 HEPAT ITIS PANEL , ACUTE W/REF ROYCE TO CONFI RMATI ON hepatitis C antibody NON-RE ACTIVE non-re active normal HCV antib geo was non-r eacti ve. There is no labor atory evide nce of HCV infec tion. In most cases , no furth er actio n is requi red. Howev er, if recen t HCV expos ure is suspe cted, a test for HCV RNA (test code 08758 ) is sugge sted. For addit ional eleazarr julisa cárdenas e refer to http: //[facility] n.que stdia gnost ics.c om/fa q/FAQ 22v1 (This link is being provi ded for infor matio nal/ educa sami l purpo ses only. ) Not Available [facility] [address] [address] [place], [address], 06/21/2023 09:58:38 06/20/20 23 06/21/2023 HIV 1/2 ANTIG EN/AN TIBOD Y,FOU RTH GENER ATION W/RFL HIV Ag/Ab, 4TH gen NON-RE ACTIVE non-re active normal HIV-1 antig en and HIV-1 /HIV- 2 antib odies were not detec shubham. There is no labor atory evide nce of HIV infec tion. PLEAS E NOTE: This infor matio n has been discl osed to you from recor ds whose confi denti ality may be prote cted by state law. If your state requi res such prote ction , then the state law prohi bits you from edda alfred any furth er discl osure of the infor matio n witho ut the speci fic writt en conse nt of the perso n to whom it perta ins, or as other garcia permi tted by law. A gener al autho rizat ion for the relea se of medic al or other infor matio n is NOT suffi cient for this purpo se. For addit ional infor matio n pleas e refer to http: //[facility] catlucy schultz.que stdia gnost ics.c om/fa q/FAQ 106 (This link is being provi ded for infor matio nal/ educa sami l purpo ses only. ) The perfo rmanc e of this assay has not been clini blair valid ated in patie nts less than 2 years old. Not Available [address], [address], 06/21/2023 09:58:39 06/20/20 23 06/21/2023 COMPR EHENS TRIPP METAB OLIC PANEL glucose 83 mg/dL 65-99 normal Fasti ng refer ence inter alexi Not Available [employer] [address], [address], 06/21/2023 09:58:41 06/20/20 23 06/21/2023 COMPR EHENS TRIPP METAB OLIC PANEL urea nitrogen (BUN) 8 mg/dL 7-25 normal Not Available [employer] [address], [address], 06/21/2023 09:58:41 06/20/20 23 06/21/2023 COMPR EHENS TRIPP METAB OLIC PANEL creatinine 0.72 mg/dL 0.50-0 .96 normal Not Available [address] [address] [facility] [place], [address], 06/21/2023 09:58:41 06/20/20 23 06/21/2023 COMPR EHENS TRIPP METAB OLIC PANEL eGFR 120 mL/mi n/1.7 3m2 > or = 60 normal Not Available [address] [address] [place], [address], 06/21/2023 09:58:41 06/20/20 23 06/21/2023 COMPR EHENS TRIPP METAB OLIC PANEL BUN/creatini ne ratio SEE NOTE: (calc ) 6-22 Not Repor shubham: BUN and Creat inine are withi n refer ence range . Not Available [address] [address] [facility] [place], [address], 06/21/2023 09:58:41 06/20/20 23 06/21/2023 COMPR EHENS TRIPP METAB OLIC PANEL sodium 137 mmol/ L 135-14 6 normal Not Available [address] [address] [place], [address], 06/21/2023 09:58:41 06/20/2006/21/2023 COMPR EHENS TRIPP METAB OLIC PANEL potassium 4.0 mmol/ L 3.5-5. 3 normal Not Available [address] [address] [place], [address], 06/21/2023 09:58:41 06/20/20 23 06/21/2023 COMPR EHENS TRIPP METAB OLIC PANEL chloride 103 mmol/ L 98-110 normal Not Available [address] [address] [place], [address], 06/21/2023 09:58:41 06/20/20 23 06/21/2023 COMPR EHENS TRIPP METAB OLIC PANEL carbon dioxide 23 mmol/ L 20-32 normal Not Available [address] [address] [place], [address], 06/21/2023 09:58:41 06/20/20 23 06/21/2023 COMPR EHENS TRIPP METAB OLIC PANEL calcium 9.3 mg/dL 8.6-10 .2 normal Not Available [address], [address], 06/21/2023 09:58:41 06/20/20 23 06/21/2023 COMPR EHENS TRIPP METAB OLIC PANEL protein, total 7.4 g/dL 6.1-8. 1 normal Not Available [address], [address], 06/21/2023 09:58:41 06/20/2006/21/2023 COMPR EHENS TRIPP METAB OLIC PANEL albumin 4.2 g/dL 3.6-5. 1 normal Not Available [address], [address], 06/21/2023 09:58:41 06/20/20 23 06/21/2023 COMPR EHENS TRIPP METAB OLIC PANEL globulin 3.2 g/dL_ (calc ) 1.9-3. 7 normal Not Available [address], [address], 06/21/2023 09:58:41 06/20/20 23 06/21/2023 COMPR EHENS TRIPP METAB OLIC PANEL albumin/glob ulin ratio 1.3 (calc ) 1.0-2. 5 normal Not Available [address], [address], 06/21/2023 09:58:41 06/20/20 23 06/21/2023 COMPR EHENS TRIPP METAB OLIC PANEL bilirubin, total 0.7 mg/dL 0.2-1. 2 normal Not Available [address], [address], 06/21/2023 09:58:41 12/09/06/21/2023 COMPR EHENS TRIPP METAB OLIC PANEL alkaline phosphatase 76 U/L 31-125 normal Not Available [address], [address], 06/21/2023 09:58:41 06/20/20 23 06/21/2023 COMPR EHENS TRIPP METAB OLIC PANEL AST 13 U/L 10-30 normal Not Available [address], [address], 06/21/2023 09:58:41 06/20/20 23 06/21/2023 COMPR EHENS TRIPP METAB OLIC PANEL ALT 7 U/L 6-29 normal Not Available [address], [address], 06/21/2023 09:58:41 06/20/20 23 06/21/2023 CBC (INCL UDES DIFF/ PLT) white blood cell count 5.2 thous and/u L 3.8-10 .8 normal Not Available [address], [address], 06/21/2023 09:58:41 06/20/20 23 06/21/2023 CBC (INCL UDES DIFF/ PLT) red blood cell count 5.25 juan josé on/uL 3.80-5 .10 high Not Available [address], [address], 06/21/2023 09:58:41 06/20/20 23 06/21/2023 CBC (INCL UDES DIFF/ PLT) hemoglobin 14.4 g/dL 11.7-1 5.5 normal Not Available [address], [address], 06/21/2023 09:58:41 06/20/20 23 06/21/2023 CBC (INCL UDES DIFF/ PLT) hematocrit 44.6 % 35.0-4 5.0 normal Not Available [address] [place], [address], 06/21/2023 09:58:41 06/20/20 23 06/21/2023 CBC (INCL UDES DIFF/ PLT) MCV 85.0 fL 80.0-1 00.0 normal Not Available [address], [address], 06/21/2023 09:58:41 06/20/20 23 06/21/2023 CBC (INCL UDES DIFF/ PLT) MCH 27.4 pg 27.0-3 3.0 normal Not Available [facility] [address], [address], 06/21/2023 09:58:41 06/20/2006/21/2023 CBC (INCL UDES DIFF/ PLT) MCHC 32.3 g/dL 32.0-3 6.0 normal Not Available [address], [address], 06/21/2023 09:58:41 06/20/20 23 06/21/2023 CBC (INCL UDES DIFF/ PLT) RDW 12.4 % 11.0-1 5.0 normal Not Available [address], [address], 06/21/2023 09:58:41 06/20/20 23 06/21/2023 CBC (INCL UDES DIFF/ PLT) platelet count 313 thous and/u L 140-40 0 normal Not Available [address], [address], 06/21/2023 09:58:41 06/20/2006/21/2023 CBC (INCL UDES DIFF/ PLT) MPV 9.9 fL 7.5-12 .5 normal Not Available [facility] [address], [address], 06/21/2023 09:58:41 06/20/20 23 06/21/2023 CBC (INCL UDES DIFF/ PLT) absolute neutrophils 3666 cells /uL 1500-7 800 normal Not Available [address], [address], 06/21/2023 09:58:41 06/20/20 23 06/21/2023 CBC (INCL UDES DIFF/ PLT) absolute lymphocytes 1154 cells /uL 850-39 00 normal Not Available [address], [address], 06/21/2023 09:58:41 06/20/2006/21/2023 CBC (INCL UDES DIFF/ PLT) absolute monocytes 328 cells /uL 200-95 0 normal Not Available [address], [address], 06/21/2023 09:58:41 06/20/20 23 06/21/2023 CBC (INCL UDES DIFF/ PLT) absolute eosinophils 21 cells /uL 15-500 normal Not Available [address], [address], 06/21/2023 09:58:41 06/20/20 23 06/21/2023 CBC (INCL UDES DIFF/ PLT) absolute basophils 31 cells /uL 0-200 normal Not Available [address], [address], 06/21/2023 09:58:41 06/20/2006/21/2023 CBC (INCL UDES DIFF/ PLT) neutrophils 70.5 % normal Not Available [address], [address], 06/21/2023 09:58:41 06/20/20 23 06/21/2023 CBC (INCL UDES DIFF/ PLT) lymphocytes 22.2 % normal Not Available [address], [address], 06/21/2023 09:58:41 06/20/20 23 06/21/2023 CBC (INCL UDES DIFF/ PLT) monocytes 6.3 % normal Not Available [address], [address], 06/21/2023 09:58:41 06/20/20 23 06/21/2023 CBC (INCL UDES DIFF/ PLT) eosinophils 0.4 % normal Not Available [address], [address], 06/21/2023 09:58:41 06/20/20 23 06/21/2023 CBC (INCL UDES DIFF/ PLT) basophils 0.6 % normal Not Available [address], [address], 06/21/2023 09:58:41 03/08/20 24 03/09/2024 LIPID PANEL , STAND OG cholesterol, total 237 mg/dL <200 high Not Available [address], [address], 03/09/2024 20:00:21 03/08/20 24 03/09/2024 LIPID PANEL , STAND OG HDL cholesterol 99 mg/dL > or = 50 normal Not Available [address], [address], 03/09/2024 20:00:21 03/08/20 24 03/09/2024 LIPID PANEL , STAND OG triglyceride s 84 mg/dL <150 normal Not Available [address], [address], 03/09/2024 20:00:21 03/08/20 24 03/09/2024 LIPID PANEL , STAND OG LDL-choleste rol 120 mg/dL _(tami c) high Refer ence range : <100 Dayami able range <100 mg/dL for prima ry preve ntion ; <70 mg/dL for patie nts with CHD or diabe tic patie nts with > or = 2 CHD risk facto rs. LDL-C is now calcu lated using the [facility] kins reynold quintanilla n, which is a valid ated novel daniel henderson than the Fried salty day ion in the estim ation of LDL-C . Ines schultz SS et al. GUSTAVO. 2013; 310(1 9): 2061- 2068 (http ://ed ucati on.Qu adityaY-Klub. com/f aq/FA Q164) Not Available [address], [address], 03/09/2024 20:00:21 03/08/20 24 03/09/2024 LIPID PANEL , STAND OG chol/HDLC ratio 2.4 (calc ) <5.0 normal Not Available [address], [address], 03/09/2024 20:00:21 03/08/20 24 03/09/2024 LIPID PANEL , STAND OG non HDL cholesterol 138 mg/dL _(tami c) <130 high For patie nts with diabe jayson plus 1 major ASCVD risk facto r, treat ing to a non-H DL-C goal of <100 mg/dL (LDL- C of <70 mg/dL ) is consi melissa a lauri mccoy optio n. Not Available [address], [address], 03/09/2024 20:00:21 03/08/20 24 03/09/2024 COMPR EHENS TRIPP METAB OLIC PANEL glucose 80 mg/dL 65-99 normal Fasti ng refer ence inter alexi Not Available [address], [address], 03/09/2024 20:00:22 03/08/20 24 03/09/2024 COMPR EHENS TRIPP METAB OLIC PANEL urea nitrogen (BUN) 9 mg/dL 7-25 normal Not Available [facility] [address], [address], 03/09/2024 20:00:22 03/08/20 24 03/09/2024 COMPR EHENS TRIPP METAB OLIC PANEL creatinine 0.90 mg/dL 0.50-0 .96 normal Not Available [address] [address] [place], [address], 03/09/2024 20:00:22 03/08/20 24 03/09/2024 COMPR EHENS TRIPP METAB OLIC PANEL eGFR 91 mL/mi n/1.7 3m2 > or = 60 normal Not Available [address] [place], [address], 03/09/2024 20:00:22 03/08/20 24 03/09/2024 COMPR EHENS TRIPP METAB OLIC PANEL BUN/creatini ne ratio SEE NOTE: (calc ) 6-22 Not Repor shubham: BUN and Creat inine are withi n refer ence range . Not Available [address] [address] [place], [address], 03/09/2024 20:00:22 03/08/20 24 03/09/2024 COMPR EHENS TRIPP METAB OLIC PANEL sodium 137 mmol/ L 135-14 6 normal Not Available [address] [address] [place], [address], 03/09/2024 20:00:22 03/08/20 24 03/09/2024 COMPR EHENS TRIPP METAB OLIC PANEL potassium 4.1 mmol/ L 3.5-5. 3 normal Not Available [address], [address], 03/09/2024 20:00:22 03/08/20 24 03/09/2024 COMPR EHENS TRIPP METAB OLIC PANEL chloride 103 mmol/ L 98-110 normal Not Available [address] [place], [address], 03/09/2024 20:00:22 03/08/20 24 03/09/2024 COMPR EHENS TRIPP METAB OLIC PANEL carbon dioxide 23 mmol/ L 20-32 normal Not Available [address], [address], 03/09/2024 20:00:22 03/08/20 24 03/09/2024 COMPR EHENS TRIPP METAB OLIC PANEL calcium 9.6 mg/dL 8.6-10 .2 normal Not Available [address], [address], 03/09/2024 20:00:22 03/08/20 24 03/09/2024 COMPR EHENS TRIPP METAB OLIC PANEL protein, total 7.2 g/dL 6.1-8. 1 normal Not Available [address], [address], 03/09/2024 20:00:22 03/08/20 24 03/09/2024 COMPR EHENS TRIPP METAB OLIC PANEL albumin 4.2 g/dL 3.6-5. 1 normal Not Available [address], [address], 03/09/2024 20:00:22 03/08/20 24 03/09/2024 COMPR EHENS TRIPP METAB OLIC PANEL globulin 3.0 g/dL_ (calc ) 1.9-3. 7 normal Not Available [address], [address], 03/09/2024 20:00:22 03/08/20 24 03/09/2024 COMPR EHENS TRIPP METAB OLIC PANEL albumin/glob ulin ratio 1.4 (calc ) 1.0-2. 5 normal Not Available [address], [address], 03/09/2024 20:00:22 03/08/20 24 03/09/2024 COMPR EHENS TRIPP METAB OLIC PANEL bilirubin, total 0.6 mg/dL 0.2-1. 2 normal Not Available [address], [address], 03/09/2024 20:00:22 03/08/20 24 03/09/2024 COMPR EHENS TRIPP METAB OLIC PANEL alkaline phosphatase 79 U/L 31-125 normal Not Available [facility] [address], [address], 03/09/2024 20:00:22 03/08/20 24 03/09/2024 COMPR EHENS TRIPP METAB OLIC PANEL AST 12 U/L 10-30 normal Not Available [address], [address], 03/09/2024 20:00:22 03/08/20 24 03/09/2024 COMPR EHENS TRIPP METAB OLIC PANEL ALT 9 U/L 6-29 normal Not Available [address], [address], 03/09/2024 20:00:22 03/08/20 24 03/09/2024 CBC (INCL UDES DIFF/ PLT) white blood cell count 5.2 thous and/u L 3.8-10 .8 normal Not Available [address], [address], 03/09/2024 20:00:22 03/08/20 24 03/09/2024 CBC (INCL UDES DIFF/ PLT) red blood cell count 5.28 juan josé on/uL 3.80-5 .10 high Not Available [facility] [address], [address], 03/09/2024 20:00:22 03/08/20 24 03/09/2024 CBC (INCL UDES DIFF/ PLT) hemoglobin 14.7 g/dL 11.7-1 5.5 normal Not Available [facility] [address], [address], 03/09/2024 20:00:22 03/08/20 24 03/09/2024 CBC (INCL UDES DIFF/ PLT) hematocrit 46.6 % 35.0-4 5.0 high Not Available [address], [address], 03/09/2024 20:00:22 03/08/20 24 03/09/2024 CBC (INCL UDES DIFF/ PLT) MCV 88.3 fL 80.0-1 00.0 normal Not Available [address], [address], 03/09/2024 20:00:22 03/08/20 24 03/09/2024 CBC (INCL UDES DIFF/ PLT) MCH 27.8 pg 27.0-3 3.0 normal Not Available [address], [address], 03/09/2024 20:00:22 03/08/20 24 03/09/2024 CBC (INCL UDES DIFF/ PLT) MCHC 31.5 g/dL 32.0-3 6.0 low Not Available [address], [address], 03/09/2024 20:00:22 03/08/20 24 03/09/2024 CBC (INCL UDES DIFF/ PLT) RDW 12.6 % 11.0-1 5.0 normal Not Available [address], [address], 03/09/2024 20:00:22 03/08/20 24 03/09/2024 CBC (INCL UDES DIFF/ PLT) platelet count 339 thous and/u L 140-40 0 normal Not Available [address], [address], 03/09/2024 20:00:22 03/08/20 24 03/09/2024 CBC (INCL UDES DIFF/ PLT) MPV 9.6 fL 7.5-12 .5 normal Not Available [address], [address], 03/09/2024 20:00:22 03/08/20 24 03/09/2024 CBC (INCL UDES DIFF/ PLT) absolute neutrophils 3099 cells /uL 1500-7 800 normal Not Available [address], [address], 03/09/2024 20:00:22 03/08/20 24 03/09/2024 CBC (INCL UDES DIFF/ PLT) absolute lymphocytes 1706 cells /uL 850-39 00 normal Not Available [address], [address], 03/09/2024 20:00:22 03/08/20 24 03/09/2024 CBC (INCL UDES DIFF/ PLT) absolute monocytes 291 cells /uL 200-95 0 normal Not Available [address], [address], 03/09/2024 20:00:22 03/08/20 24 03/09/2024 CBC (INCL UDES DIFF/ PLT) absolute eosinophils 73 cells /uL 15-500 normal Not Available [address], [address], 03/09/2024 20:00:22 03/08/20 24 03/09/2024 CBC (INCL UDES DIFF/ PLT) absolute basophils 31 cells /uL 0-200 normal Not Available [facility] [address], [address], 03/09/2024 20:00:22 03/08/20 24 03/09/2024 CBC (INCL UDES DIFF/ PLT) neutrophils 59.6 % normal Not Available [address], [address], 03/09/2024 20:00:22 03/08/20 24 03/09/2024 CBC (INCL UDES DIFF/ PLT) lymphocytes 32.8 % normal Not Available [address], [address], 03/09/2024 20:00:22 03/08/20 24 03/09/2024 CBC (INCL UDES DIFF/ PLT) monocytes 5.6 % normal Not Available [address], [address], 03/09/2024 20:00:22 03/08/20 24 03/09/2024 CBC (INCL UDES DIFF/ PLT) eosinophils 1.4 % normal Not Available [address], [address], 03/09/2024 20:00:22 03/08/20 24 03/09/2024 CBC (INCL UDES DIFF/ PLT) basophils 0.6 % normal Not Available [address], [address], 03/09/2024 20:00:22 02/09/20 19 02/08/2019 exerc gabe ann echoc ardio gram No observ ation record ed. [address] [address] [place], [address], 02/08/2019 19:15:56 01/04/20 21 01/03/2021 US, head + neck, soft tissu e No observ ation record ed. [address] [place] [address] [place], [address], 02/11/2022 16:50:16 Result Notes None recorded. Problems Name Problem SNOMED Code Status Onset Date Resolution Date Notes Provider Name and Address Organization Details Recorded Time Scoliosis deformity of spine 032036520 Active 2018 spinal fusion C-L 2011 - [facility] 4 11:29:18 Lymphaden opathy 46479113 Active 2022 Not Available [facility] 4 11:29:18 Tachycard ia 6149708 Active 2022 Not Available [facility] 4 11:29:18 Snoring 96756300 Active 2022 Not Available [facility] 4 11:29:18 Obstructi ve sleep apnea of adult 18187218968 03 Active 2022 Not Available formerly [facility] 4 11:29:18 Sexually transmitt ed infectiou s disease 0477529 Active 2022 Not Available [facility] 4 11:29:18 Problem Notes None recorded. Procedures Surgical History Date Name Laterality Status Provider Name and Address Organization Details Recorded Time 11/22/19 22 Date of Last Pap Smear completed Shasta Cuevas [facility] 02/11/2022 15:44:25 02/11/20 19 procedure on vocal cord completed Milla Smith [facility] 12/17/2020 19:55:21 Back Surgery completed Gio Ureña MD [address] [facility] [address], [place], [address] 09/20/2018 13:36:11 Imaging Results None recorded. Procedure Notes None recorded. Medical Equipment None Reported. Allergies Allergen ID Allergen Name Allergen Category Reaction Reaction Severity Criticality Documentation Date Start Date Code Code System Note Provider Name and Address Organization Details Recorded Time 7678 azithromy nedra medicatio n hives moderate Not available 07/19/2018 48818 RxNorm occur ed as a child Alma hall [facility] 9 11:39:45 Medications Name Sig Start Date Stop Date Status Note LastModified by Organization Details LastModified Time status covid-19/fl u a&b antigen tst USE DIRECTED active Not Available Not Available No t Available amoxicillin 500 mg capsule TAKE ONE CAPSULE BY MOUTH EVERY 6 HOURS UNTIL ALL TAKEN 02/11 completed Not Available Not Available Not Available fluconazole 150 mg tablet TAKE 1 TABLET BY MOUTH NOW FOR 1 DOSE. REPEAT 3 DAYS active Not Available Not Available No t Available metronidazo le 500 mg tablet TAKE 1 TABLET BY MOUTH TWICE DAILY FOR 7 DAYS active Not Available Not Available No t Available ciprofloxac in 500 mg tablet TAKE 1 TABLET BY MOUTH EVERY 12 HOURS FOR 7 DAYS 02/16 completed Not Available Not Available Not Available triamcinolo ne acetonide 0.1 % topical cream APPLY TWICE DAILY TO THREE TIMES DAILY 12/17 completed Not Available Not Available Not Available ketoconazol e 2 % topical cream 12/17 completed Not Available Not Available Not Available fluticasone propionate 50 mcg/actuati on nasal spray,suspe nsion SHAKE LIQUID AND USE 1 SPRAY IN EACH NOSTRIL EVERY DAY active Not Available Not Available No t Available Isibloom 0.15 mg-0.03 mg tablet Take 1 tablet every day by oral route. 12/17 completed Not Available Not Available Not Available EluRyng 0.12 mg-0.015 mg/24 hr vaginal ring INSERT 1 RING VAGINALLY FOR 3 WEEKS. THEN REMOVE FOR 1 WEEK. active Not Available Not Available No t Available ID NOW COVID-19 Test Kit TEST DIRECTED TODAY 02/11 completed Not Available Not Available Not Available Paxlovid 300 mg (150 mg x 2)-100 mg tablets in a dose pack TAKE 2 NIRMATREL VIR TABLETS AND 1 RITONAVIR TABLET TOGETHER BY MOUTH TWICE DAILY FOR 5 DAYS active Not Available Not Available No t Available Vitals Date Recorded Systolic And Diastolic Provider Name and Address Organization Details Last Updated DateTime 09/20/2018 127/78 mm[Hg] Gio Ureña MD [address] [facility] [address], [place], [address], [facility] 09/20/2018 13:49:51 Date Recorded Respiratory rate Body weight Body mass index (BMI) Body mass index (BMI) [Percentile] Per age and sex Body height Heart rate Provider Name and Address Organization Details Last Updated DateTime 9 16 /min 61048 g 28.3 kg/m2 90 % 158.75 cm 88 /min Tiffany Partida [facility] 9 13:03:41 Date Recorded Body weight Body mass index (BMI) Body height Respiratory rate Body temperature Heart rate Systolic And Diastolic Provider Name and Address Organization Details Last Updated DateTime 1 [address].5 2 g 30.2 kg/m2 158.75 cm 16 /min 98.2 [degF] 87 /min 127/84 mm[Hg] Milla Álvarez od [facility] 1 19:50:53 Date Recorded Body mass index (BMI) Body height Provider Name and Address Organization Details Last Updated DateTime 02/11/2022 29.3 kg/m2 158.75 cm Gio Ureña MD [address] [facility] [address], [place], [address], [facility] 02/11/2022 16:48:34 Date Recorded Body weight Respiratory rate Body temperature Heart rate Systolic And Diastolic Provider Name and Address Organization Details Last Updated DateTime 2 27324.5 6 g 16 /min 98 [degF] 80 /min 139/83 mm[Hg] Shasta [facility] 2 15:43:22 Date Recorded Respiratory rate Body height Body mass index (BMI) Body weight Body temperature Heart rate Systolic And Diastolic Provider Name and Address Organization Details Last Updated DateTime 3 16 /min 157.48 cm 34 kg/m2 95833.1 8 g 97.7 [degF] 64 /min 133/88 mm[Hg] Shasta [facility] 3 13:02:52 Date Recorded Heart rate Respiratory rate Body temperature Body height Body mass index (BMI) Body weight Systolic And Diastolic Provider Name and Address Organization Details Last Updated DateTime 4 74 /min 16 /min 97.9 [degF] 157.48 cm 34.4 kg/m2 94285.3 7 g 127/84 mm[Hg] [facility] 4 17:11:07 Social History Question Answer Notes LastModified by Organizat ion Details LastModified Time Tobacco Smoking Status [facility]/2018 11:44:47 Do You Have An Advance Directive? No Information not available 09/20/2018 What Is Your Level Of Caffeine Consumption? None [email or web address] Information not available 07/19/2018 How Much Tobacco Do You Chew? None [email or web address] Information not available 07/19/2018 What Is Your Code Status? Full Code Information not available 09/20/2018 What Type Of Diet Are You Following? REGULAR Information not available 09/20/2018 Which Illicit Or Recreational Drugs Have You Used? None [email or web address] Information not available 07/19/2018 Hard Of Hearing Or Deaf In One Or Both Ears? No [email or web address] Information not available 07/19/2018 Legally Blind In One Or Both Eyes? No [email or web address] Information no t available 07/19/2018 Live Alone Or With Others? With Others [email or web address] Information not available 07/19/2018 Marital Status Single [email or web address] Informatio n not available 07/19/2018 What Was The Date Of Your Most Recent Tobacco Screening? 02/25/2024 Information not available 02/25/2024 How Much Tobacco Do You Smoke? No Information not available 09/20/2018 How Many Years Have You Smoked Tobacco? 0 Information not available 09/20/2018 Sex: Unknown Functional Status Question Answer Note LastModified by Organizat ion Details LastModified Time What is your level of alcohol consumption? Moderate mostly on the weekends 5-6 drinks Information not available 02/16/2023 Do you or have you ever used smokeless tobacco? Former smokeless tobacco user Information not available 12/17/2020 Are you currently employed? 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 Never used electronic cigarettes Information not available 12/17/2020 What is your exercise level? Moderate Information not available 09/20/2018 Mental Status None recorded. Family History Relationship Description Onset Age of this Age Resolved Age Notes LastModified by Organization Details LastModified Time Father Benign hypertension [email or web address] Not available 11:43:56 Mother Benign hypertension [email or web address] Not available 11:43:56 Paternal Grandfather Benign hypertension [email or web address] Not available 11:43:56 Paternal Grandmother Benign hypertension [email or web address] Not available 11:43:56 Maternal Grandfather Harmful pattern of use of alcohol [email or web address] Not available 07/19 11:44:15 Maternal Grandmother Malignant neoplasm of lung Dx'd around 40 y/o (smoke r) Not available 09/20/2018 13:33:08 Notes:No family history for coronary artery disease or diabetes mellitus. Medical History No medical history recorded. Gynecological History Statement/Question Response Date of Last Pap Smear 11/21/2021 Obstetrics History GPAL:G 0 P 0 0 0 0 Immunizations Vaccine Type Date Status Note Provider Vicente fernandez and Address Organization Details Recorded Time Tdap 08/07/2023 completed Gio Ureña MD [address] [place] [address] [address], [facility] [id number] [employer] [facility] 08/09/2023 23:11:21 Past Encounters Encounter ID Performer Location Encounter Start Date Encounter Closed Date Diagnosis/Indication Diagnosis SNOMED-CT Code Diagnosis ICD10 Code Diagnosis IMO Codes Diagnosis Note [id number] ALMA PEARL APN [facility] [employer] [facility] [address] [place] [address] 07/19/2018 10:59:52 07/19/2018 12:08:51 Active or passive immunization 971804857 Z23 Aishwarya Sanchez [facility] - pediatrici an - obtain vaccinatio n record - Screening for malignant neoplasm of cervix 972393668 Z12.4 pap 05/2018 Ringing in ear 886698305 H93.19 Peeling of skin 24189368 6 R23.4 occurs only on fingertips - x 1 yearoccurs mainly in winter and infrequent ly in summer months Tachycardia 5813313 R00. 0 during exercise 198 [facility] Hyperlipid emia screening 834420771 Z13.220 [id number] Gio Ureña MD [employer] [address] [place] [address] 09/20/2018 12:25:16 09/20/2018 13:53:38 Adult health examination 300718456 Z00.00 Ringing in ear 911206886 H93.19 (bilateral ) -- spontaneou sly resolved-- pt has Appt w/ ENT tomorrow 09/20/18 (w/ Dr Jones) Peeling of skin 09669545 6 R23.4 occurs only on fingertips - x 1 year-- spontaneou sly resolved Tachycardia 5184270 R00. 0 during exercise 198 BPR reported by [facility] Screening for malignant neoplasm of cervix 984574702 Z12.4 pap 05/2018 Active or passive immunization 914570010 Z23 Aishwarya Sanchez [facility] - pediatrici an - obtain vaccinatio n record - Hyperlipid emia screening 226037291 Z13.220 -- normal lipid level on 07/19/18 Body mass index 25-29 - overweight 314237410 Z68.28 -- pt lost 5 # since her last visit-- Patient's BMI today is 28.3 (ideal is between 20-25). [id number] Gio Ureña MD [employer] [facility] [place] [address] 12/17/2020 18:49:15 12/17/2020 20:47:27 Adult health examination 646964260 Z00.00 Tachycardia 6944502 R00. 0 during exercise 198 BPR reported by pt asymptomat ic -- now her HR is about 160 bpm Active or passive immunization 608281230 Z23 Aishwarya Sanchez [facility] - pediatrici an - obtain vaccinatio n record -- I advised pt to get the Gardasil Screening for malignant neoplasm of cervix 862843751 Z12.4 pap 05/2018 Body mass index 30+ - obesity 275084866 Z68.39 -- advised weight loss; pt gained 11 # since her last visit -- Patient's BMI today is 30.2 (ideal is between 20-25). Hepatitis C screening 41 5694105 Z11.59 Venereal d isease screening 636977368 Z11.3 Lymphadenopathy 73483041 R59.9 (Rt neck) -- see photo [id number] Gio Ureña MD [employer] [facility] [place] [address] 02/11/2022 15:31:22 02/11/2022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
--- OUTSIDE RECORDS SUMMARY | 2025-07-03 16:51 | XMS_ITS | Clinical Summary ---
Author Organization [facility] Address [address] [place] [address] Care Team Providers Care Facility Designer Name Role Phone Aishwarya Sanchez MD Primary Care Provider [phone] Source Comments [facility],non-owned Affiliates and Associated Physician Practices is amultiple site organization consisting of ambulatory clinics and hospital sitesin [place], [place], [place] and [place]. This disclosure is being madepursuant to the Care Everywhere program and may not contain all information available regarding this patient. Last updated 18.[facility] Allergies Active Allergy Reactions Criticality Noted Date Comments Azithromycin Swelling 04/14/2011 Medications * Be aware that medications may not be up to date on this document. Alwaysverify current medications with the patient. No known medications Social History Tobacco Use Types Packs/Day Years Used Date Smoking Tobacco: Never Assessed Comments Unknown Sex and Gender Information Value Date Recorded Sex Assigned at Not on file Legal Sex Female 5:39 AM [employer] Gender Identity Not on file Sexual Orientation Not on file Last Filed Vital Signs Vital Sign Reading Time Taken Comments Blood Pressure - - Pulse - - Temperature - - Respiratory Rate - - Oxygen Saturation - - Inhaled Oxygen Concentration - - Weight 60.4 kg (133 lb 3.2 oz) 04/14/2011 3:28 P M CDT Height 155 cm (5' 1.02) 04/14/2011 3:28 PM CDT Body Mass Index 25.15 04/14/2011 3:28 PM CDT Plan of Treatment Health Maintenance Due Date Last Done Comments HIV SCREENING 2013 HPV VACCINE (1 - 3-dose series) 2013 HEPATITIS C SCREENING 07/01/2016 DTAP/TDAP/TD VACCINES (1 - Tdap) 2017 HEPATITIS B VACCINE (1 of 3 - 19+ 3-dose series) 2017 DEPRESSION SCREENING 07/13/2024 COVID-19 VACCINE (1 - 2024-2 6 season) 2025 INFLUENZA VACCINE (#1) 2025 ZOSTER VACCINE (1 of 2) 2048 HIB VACCINE Aged Out No longer eligi ble based on patient's age to complete this topic MENINGOCOCCAL (Group B) VACC INE SHARED DECISION-MAKING Aged Out No longer eligibl e based on patient's age to complete this topic MENINGOCOCCAL GROUPS A/C/Y/W VACCINE Aged Out No longer eligible b ased on patient's age to complete this topic PNEUMOCOCCAL VACCINE Aged Out No long er eligible based on patient's age to complete this topic Care Teams Facility Designer Relationship Specialty Start Date End Date Aishwarya Sanchez MD [address] [place] [address] PCP - General 03/10/11
--- OUTSIDE RECORDS SUMMARY | 2025-07-03 16:51 | XMS_ITS | Data Portability ---
Author Organization setObject , [facility] [place] Address [address] [place] [address] Assessment No assessment recorded. Plan of Treatment Reminders Order Date Submit Date Provider Last Modified By Organization Details Last Modified Time Details Appointments None recorded. Lab CT + NG DNA, PCR, unspecifie d specimen 2021 022 [facility], [address] [place] [address], [address], 2 16:16:35 HIV 1+2 Ab + HIV1 p24 Ag, quantitati ve immunoassa y, serum 2021 022 [facility], [address] [place], [address], 3 16:19:27 hepatitis C virus Ab, serum 2021 022 [facility], [address] [place], [address], 3 16:19:27 RPR (rapid plasma reagin), serum 2021 022 [facility], [address] [place], [address], 3 16:19:27 HBsAg (hepatitis B surface Ag), serum 2021 022 [facility], [address] [place], [address], 16:19:27 hsv (1+2) igg, serum 2021 022 [place] [address] [employer] [facility], [address] [place], [address], 16:19:27 hsv (1+2) igm Ab, quant, serum, reflex titer 2021 022 [place] [address] [facility], [address] [place], [address], 16:19:28 biopsy, tissue 2021 022 [employer] [facility], [address] [place] [address], [address], 17:45:33 biopsy, tissue 2021 [facility]22 [facility], [address] [place] [address], [address], 17:50:29 biopsy, tissue 2021 022 [employer] [facility], [address] [place] [address], [address], 17:50:29 test, urine 2021 022 [facility], [address] [place], [address], 2 20:58:53 bacterial vaginosis + vaginitis panel, vaginal 2021 022 [facility], [address] [place] [address], [address], 07:51:47 HIV 1+2 Ab + HIV1 p24 Ag, quantitati ve immunoassa y, serum 2021 022 [employer] [facility], [address] [place] [address] [place], [address], 14:30:55 HBsAg (hepatitis B surface Ag), serum 2021 [employer] [facility], [address] [place], [address], 14:30:54 RPR (rapid plasma reagin), serum 2021 [employer] [facility], [address] [place], [address], 14:30:55 hepatitis C virus Ab, serum 2021 [employer] [facility], [address] [place], [address], 14:30:54 urinalysis , dipstick 2021 [facility], [address] [place], [address], 14:48:02 culture, urine 2021 [facility], [address] [place], [address], 12:34:43 CT + NG DNA, PCR, unspecifie d specimen 2021 [facility], [address] [place] [address], [address], 10:56:38 unlisted lab - Pap reflex hold 2021 [facility], [address] [place] [address], [address], 10:56:36 pap, LB 2021 [employer] [facility], [address] [place], [address], 12:35:09 Referral None recorded. Procedures colposcopy with biopsy and endocervic al curettage (PROC) 2021 022 [facility] Not available 17:53:51 Surgeries None recorded. Imaging None recorded. Medication Orders Twirla 120 mcg-30 mcg/24 hr transderma l patch 2021 022 [id number], [address], [place], [id number], 14:38:44 Patient TargetsNo targets recorded. Patient Instructions Encounter Date Encounter Id Patient Instructions Last Modified By Organization Details Last Modified Time 11/19/2021 [id number] body mass index: care instructions Not available 11/19/2021 14:15:19 learning about depression screening Not available 11/19/2021 14:15:19 A healthy lifestyle: care instructions Not available 11/19/2021 14:15:19 07/02/2022 [id number] sexually transmitted disease education [email or web address] Not available 07/02/2022 14:48:06 Reason for Referral None Reported. Results Created Date Observation Date Name Description Value Unit Range Abnormal Flag Note LastModifiedBy Organization Detail LastModifiedTime 11/20/19 22 11/20/2021 PAP REFLE X HOLD Pap reflex hold Receiv ed receiv ed Not [place], [address], 11/20/2021 10:56:38 11/20/19 22 11/20/2021 CT/NG chlamydia trachomatis CT neg negati ve normal If both Pap and Endoc ervic al swabs are colle cted, the Prese rvCyt Solut ion liqui d Pap speci men must be colle cted befor e the endoc ervic al swab speci men. [place], [address], 11/20/2021 17:13:39 11/20/19 22 11/20/2021 CT/NG neisseria gonorrhoeae GC neg negati ve normal If both Pap and Endoc ervic al swabs are colle cted, the Prese rvCyt Solut ion liqui d Pap speci men must be colle cted befor e the endoc ervic al swab speci men. Not Available [facility] [address] [place], [address], 11/20/2021 17:13:39 11/20/19 22 11/26/2021 THINP REP TIS PAP clinical information: normal Infor matio n not provi ded Not Available [address] [address] [place], [address], 11/26/2021 12:35:09 11/20/19 22 11/26/2021 THINP REP TIS PAP LMP: normal NONE GIVEN Not Available [address] [place], [address], 11/26/2021 12:35:09 11/20/19 22 11/26/2021 THINP REP TIS PAP prev. Pap: normal NONE GIVEN Not Available [address] [place], [address], 11/26/2021 12:35:09 11/20/19 22 11/26/2021 THINP REP TIS PAP prev. BX: normal NONE GIVEN Not Available [address] [address] [place], [address], 11/26/2021 12:35:09 11/20/19 22 11/26/2021 THINP REP TIS PAP source: normal None given Not Available [address] [place], [address], 11/26/2021 12:35:09 11/20/19 22 11/26/2021 THINP REP TIS PAP statement of adequacy: normal Satis facto ry for evalu ation . Endoc ervic al/tr ansfo rmati on zone compo nent prese nt. Age and/o r menst rual statu s not provi ded Not Available [address] [address], [place], [address], 11/26/2021 12:35:09 11/20/19 22 11/26/2021 THINP REP TIS PAP general categorizati on: abnormal EPITH ELIAL CELL ABNOR MALIT Y Not Available [address] [address], [place], [address], 11/26/2021 12:35:09 11/20/19 22 11/26/2021 THINP REP TIS PAP interpretati on/result: abnormal Low Grade Squam ous Intra epith elial Lesio n, (LSIL ), a more advan sunil lesio n may be prese nt Not Available [address] [address], [place], [address], 11/26/2021 12:35:09 11/20/19 22 11/26/2021 THINP REP TIS PAP comment: normal This Pap test has been evalu ated with compu ter byron shubham techn ology . Sugge st clini tami corre latio n and follo w-up as clini blair appro priat e Not Available [address] [address], [place], [address], 11/26/2021 12:35:09 11/20/19 22 11/26/2021 THINP REP TIS PAP cytotechnolo gist: normal BES, CT( CP) CT scree bianca locat ion: [address] [address] [address] [place] [address] Not Available [address] [address] [place], [address], 11/26/2021 12:35:09 11/20/19 22 11/26/2021 THINP REP TIS PAP pathologist: normal Wil Kumar M.D., Board Certi fied in Anato lela Patho logy and Clini tami Patho logy. Phone (elec troni c signa ture) Not Available [facility] [address] [place], [address], 11/26/2021 12:35:09 11/20/19 22 11/26/2021 THINP REP TIS PAP comment EXPLA NATOR Y NOTE: The Pap is a scree bianca test for cervi tami cance r. It is not a diagn ostic test and is subje ct to false negat terri and false posit terri resul ts. It is most relia ble when a satis facto ry sampl e, regul francisco j obtai santos, is submi tted with relev ant clini tami findi ngs and histo ry, and when the Pap resul t is evalu ated along with histo ziyad and curre nt clini tami infor matio n. Not Available [facility] [address] [address], [place], [address], 11/26/2021 12:35:09 11/20/19 22 11/19/2021 urina lysis , dipst ick Leukocytes Negati ve Not Available [address], [address], 11/19/2021 14:19:28 11/20/19 22 11/19/2021 urina lysis , dipst ick Nitrite negati ve Not Available [address], [address], 11/19/2021 14:19:28 11/20/19 22 11/19/2021 urina lysis , dipst ick Urobilinogen .2 Not Available [address], [address], 11/19/2021 14:19:28 11/20/19 22 11/19/2021 urina lysis , dipst ick Protein Trace Not Available [address], [address], 11/19/2021 14:19:28 11/20/19 22 11/19/2021 urina lysis , dipst ick pH 5.0 Not Available [facility] [address] [place] [address] Blvd, [place], [address], 11/19/2021 14:19:28 11/20/19 22 11/19/2021 urina lysis , dipst ick Blood Negati ve Not Available [facility] [address], [place], [address], 11/19/2021 14:19:28 11/20/19 22 11/19/2021 urina lysis , dipst ick Specific [place] 1.000 Not Available [address], [place], [address], 11/19/2021 14:19:28 11/20/19 22 11/19/2021 urina lysis , dipst ick Ketone Negati ve Not Available [address], [place], [address], 11/19/2021 14:19:28 11/20/19 22 11/19/2021 urina lysis , dipst ick Bilirubin Negati ve Not Available [address], [place], [address], 11/19/2021 14:19:28 11/20/19 22 11/19/2021 urina lysis , dipst ick Glucose Negati ve Not Available [address], [place], [address], 11/19/2021 14:19:28 11/20/19 22 11/19/2021 urina lysis , dipst ick Appearance Slight ly Cloudy Not Available [address], [place], [address], 11/19/2021 14:19:28 11/20/19 22 11/19/2021 urina lysis , dipst ick Color Yellow Not Available [facility] [address] [place], [address], 11/19/2021 14:19:28 02/12/20 22 02/12/2022 HEPAT ITIS B SURFA CE ANTIG EN W/REF L CONFI RM hepatitis B surface antigen NON-RE ACTIVE non-re active normal Not Available [facility] [address] [address] [place], [address], 02/12/2022 14:30:54 02/12/20 22 02/12/2022 HEPAT ITIS C AB W/REF L TO HCV RNA, QN, PCR hepatitis C antibody NON-RE ACTIVE non-re active normal Not Available [facility] [address] [address] [place], [address], 02/12/2022 14:30:54 02/12/20 22 02/12/2022 HEPAT ITIS C AB W/REF L TO HCV RNA, QN, PCR index 0.01 <1.00 normal HCV antib geo was non-r eacti ve. There is no labor atory evide nce of HCV infec tion. In most cases , no furth er actio n is requi red. Howev er, if recen t HCV expos ure is suspe cted, a test for HCV RNA (test code 72201 ) is sugge sted. For addit ional infor julisa schultz pleas e refer to http: //[facility] shandra cadena stdia gnost ics.c om/fa q/FAQ 22v1 (This link is being provi ded for infor julisa ambrose/ educa sami l purpo ses only. ) Not Available [facility] [address] [address] [place], [address], 02/12/2022 14:30:54 02/12/20 22 02/12/2022 HIV 1/2 ANTIG EN/AN TIBOD Y,FOU RTH [...] matio n pleas e refer to http: //[facility] catlucy n.que stdia gnost ics.c om/fa q/FAQ 106 (This link is being provi ded for infor matio nal/ educa sami l purpo ses only. ) The perfo rmanc e of this assay has not been clini blair valid ated in patie nts less than 2 years old. Not Available [facility] [address] [place], [address], 02/12/2022 14:30:55 02/12/20 22 02/12/2022 RPR (DX) W/REF L TITER AND CONFI RMATO RY TESTI NG RPR (DX) w/refl titer and confirmatory testing NON-RE ACTIVE non-re active normal Not Available [facility] [address] [place], [address], 02/12/2022 14:30:55 02/12/20 22 02/12/2022 VAGIN ITIS PLUS STD PANEL bacterial vaginosis BV neg negati ve normal Not Available [address], [address], 02/13/2022 07:51:47 02/12/20 22 02/12/2022 VAGIN ITIS PLUS STD PANEL acosta species C. spp POS negati ve abnormal Not Available [address], [address], 02/13/2022 07:51:47 02/12/20 22 02/12/2022 VAGIN ITIS PLUS STD PANEL acosta glabrata C. gla neg negati ve normal Not Available [address], [address], 02/13/2022 07:51:47 02/12/20 22 02/12/2022 VAGIN ITIS PLUS STD PANEL trichomonas vaginalis CV/TV TRICH neg negati ve normal Not Available [address], [address], 02/13/2022 07:51:47 02/12/20 22 02/12/2022 VAGIN ITIS PLUS STD PANEL chlamydia trachomatis CT neg negati ve normal This repor t is inten ded for us in clini tami monit oring and manag ement of patie nts. It is not inten ded for use in medic al-le gal appli catio n. Not Available [address], [address], 02/13/2022 07:51:47 02/12/20 22 02/12/2022 VAGIN ITIS PLUS STD PANEL neisseria gonorrhoeae GC neg negati ve normal This repor t is inten ded for us in clini tami monit oring and manag ement of patie nts. It is not inten ded for use in medic al-le gal appli catio n. Not Available [address], [address], 02/13/2022 07:51:47 03/07/20 22 03/12/2022 TISSU E PATHO LOGY pathologist Caren ann M.D., Board Certi fied in Anato lela Patho logy and Clini tami Patho logy [phone] (elec troni c signa ture) Not Available [address] [address] [place], [address], 03/12/2022 17:45:33 03/07/20 22 03/12/2022 TISSU E PATHO LOGY report notes Cyto/ Histo corre latio n canno t be perfo rmed since the tissu e is predo minan tly ectoc ervic al in origi n and may not be repre senta tive of all downey es withi n the trans forma tion zone. Pleas e corre late and follo w clini blair . Not Available [address] [address] , [place], [address], 03/12/2022 17:45:33 03/07/20 22 03/12/2022 TISSU E PATHO LOGY A source Endoc ervix , curet tage Not Available [address] [address] , [place], [address], 03/12/2022 17:45:33 03/07/20 22 03/12/2022 TISSU E PATHO LOGY A gross description Speci men is recei zander in forma [...] at: [facility] [place] MB[facility] [address] [place] [address] [place] [address] Labor atory Direc tor: MARKY Ann MD Not Available [facility] [address] [address] [place], [address], 03/12/2022 17:45:33 03/07/20 22 03/12/2022 TISSU E PATHO LOGY A diagnosis Fragm ents of benig n squam ous epith elium with mucus and blood ; and scant endoc ervic al epith elium . Not Available [address] [address] [place], [address], 03/12/2022 17:45:33 03/07/20 22 03/12/2022 TISSU E PATHO LOGY B source Cervi x, 7 o'joni ck, biops y Not Available [facility] [address] [address] [place], [address], 03/12/2022 17:45:33 03/07/20 22 03/12/2022 TISSU E PATHO LOGY B gross description Speci men is recei zander in forma queenie, label ed with multi ple patie nt ident ifier s and consi sts of one fragm ent of tissu e measu ring 0.5 x 0.3 x 0.2 cm, irreg ular in shape and yello w-whi te in color . The speci men is entir thu submi tted in one casse tte. Not Available [address] [address] , [place], [address], 03/12/2022 17:45:33 03/07/20 22 03/12/2022 TISSU E PATHO LOGY B diagnosis Biops y of squam ous mucos a with no evide nce of dyspl iliana. Not Available [facility] [address] [address] [address] , [place], [address], 03/12/2022 17:45:33 03/07/20 22 03/12/2022 TISSU E PATHO LOGY C source Cervi x, 4 o'joni ck, biops y Not Available [facility] [address] [address] [place], [address], 03/12/2022 17:45:33 03/07/20 22 03/12/2022 TISSU E PATHO LOGY C gross description Speci men is recei zander in forma queenie, label ed with multi ple patie nt ident ifier s and consi sts of one fragm ent of tissu e measu ring 0.5 x 0.4 x 0.2 cm, irreg ular in shape and yello w-whi te in color . The speci men is entir thu submi tted in one casse tte. Not Available [facility] [address] [address] , [place], [address], 03/12/2022 17:45:33 03/07/20 22 03/12/2022 TISSU E PATHO LOGY C diagnosis Biops y of squam ous mucos a with no evide nce of dyspl iliana. Not Available [facility] [address] [address], [place], [address], 03/12/2022 17:45:33 03/12/20 22 03/12/2022 pregn reno test, urine HCG negati ve Not Available [facility] [address] [place], [address], 03/08/2022 15:36:04 07/02/20 22 07/08/2022 CT/NG chlamydia trachomatis CT neg negati ve normal This repor t is inten ded for us in clini tami monit oring and manag ement of patie nts. It is not inten ded for use in medic al-le gal appli catio n. Not Available [address], [address], 07/08/2022 16:16:35 07/02/20 22 07/08/2022 CT/NG neisseria gonorrhoeae GC neg negati ve normal This repor t is inten ded for us in clini tami monit oring and manag ement of patie nts. It is not inten ded for use in medic al-le gal appli catio n. Not Available [facility] [address] [place], [address], 07/08/2022 16:16:35 Result Notes None recorded. Problems No Known Problems Procedures Surgical History Date Name Laterality Status Provider Name and Address Organization Details Recorded Time 06/02/20 22 Nexplanon Insertion cancelled DEYSI VASQUEZ-BC [address] [place], [address], [employer] IV 06/01/2022 15:24:57 03/07/20 Colposcopy - Cervix completed OLENA RODRIGUEZ MD [facility] [place], [address], [facility] [employer] IV 03/08/2022 15:34:36 11/20/19 Date of Last Pap Smear completed OLENA RODRIGUEZ MD [facility] [place], [address], [facility] [employer] IV 02/11/2022 14:22:17 11/23/19 12 correction of scoliosis completed Taryn Penn [employer] [facility] 09/21/2021 13:27:13 operative procedure on foot completed Taryn Penn [employer] [facility] IV 09/21/2021 13:27:47 Imaging Results None recorded. Procedure Notes None recorded. Medical Equipment None Reported. Allergies Allergen ID Allergen Name Allergen Category Reaction Reaction Severity Criticality Documentation Date Start Date Code Code System Note Provider Name and Address Organization Details Recorded Time 375431 azithromy nedra medicatio n Not available Not available Not available 05/03/20212018 30293 RxNorm Sever ity: Moder ate; Brenda Britsch null, [employer] [facility] 15:20:53 Medications Name Sig Start Date Stop Date Status Note LastModified by Organization Details LastModified Time status covid-19/f clara a&b antigen tst USE DIRECTED active Not Available Not Available No t Available amoxicilli n 500 mg capsule TAKE ONE CAPSULE BY MOUTH EVERY 6 HOURS UNTIL ALL TAKEN 02/11 completed Not Available Not Available Not Available Apri 0.15 mg-0.03 mg tablet Take 1 tablet(s ) by mouth daily as directed . 05/12 completed Apri 28 30mcg/0 .15mg Tablet RxNorm: 632891 Allow Substit ution: True Refill Denied: No Not Available Not Available Not Available fluconazol e 150 mg tablet TAKE 1 TABLET BY MOUTH EVERY 72 HOURS WITH MEALS FOR 2 DAYS 03/07 completed Not Available Not Available Not Available ciprofloxa nedra 500 mg tablet TAKE 1 TABLET BY MOUTH EVERY 12 HOURS FOR 7 DAYS 07/02 completed Not Available Not Available Not Available fluticason e propionate 50 mcg/actuat ion nasal spray,susp ension SHAKE LIQUID AND USE 1 SPRAY IN EACH NOSTRIL EVERY DAY active Not Available Not Available No t Available NuvaRing 0.12 mg-0.015 mg/24 hr vaginal Insert 1 vaginal ring in vagina for 21 days then remove the ring for 1 week, then insert new ring. active Not Available Not Available No t Available ID NOW COVID-19 Test Kit TEST DIRECTED TODAY 02/11 completed Not Available Not Available Not Available Twirla 120 mcg-30 mcg/24 hr transderma l patch Apply 1 patch every week by transder mal route for 21 days. 07/02 completed Not Available Not Available Not Available Vitals Date Recorded Body height Body mass index (BMI) Body weight Systolic And Diastolic Provider Name and Address Organization Details Last Updated DateTime 11/19/2021 157.48 cm 31.2 kg/m2 64841.14 g 122/76 mm[Hg] Asha Billings [facility] [employer] [facility] IV 11/19/2021 13:45:34 Date Recorded Body height Body mass index (BMI) Body weight Body temperature Systolic And Diastolic Provider Name and Address Organization Details Last Updated DateTime 02/11/2022 157.48 cm 30.2 kg/m2 70194.7 4 g 97 [degF] 122/70 mm[Hg] Charu Powell [facility] [employer] [facility] IV 14:29:08 Date Recorded Body height Provider Name an d Address Organization Details Last Updated DateTime 03/07/2022 157.48 cm Brenda William [facility] [employer] [facility] IV 03/07/2022 16:15:14 Date Recorded Body height Body mass index (BMI) Body weight Systolic And Diastolic Provider Name and Address Organization Details Last Updated DateTime 07/02/2022 157.48 cm 31.5 kg/m2 32923.89 g 122/80 mm[Hg] Tita Billings [facility] 07/02/2022 14:38:16 Social History Question Answer Notes LastModified by Organizat ion Details LastModified Time Are You Blind Or Do You Have Difficulty Seeing? No Information not available 03/07/2022 Are You Deaf Or Do You Have Serious Difficulty Hearing? No Information not available 03/07/2022 How Many Children Do You Have? 0 [email or web address] Information not available 07/02/2022 What Is Your Relationship Status? Single Information not available 09/21/2021 Are You Sexually Active? Yes Information not available 09/21/2021 Sex: Unknown Functional Status None recorded. Mental Status None recorded. Family History Relationship Description Onset Age of this Age Resolved Age Notes LastModified by Organization Details LastModified Time Father No current problems or disability [email or web address] Not available 06/2022 13:26:58 Mother No current problems or disability [email or web address] Not available 06/2022 13:26:58 Medical History Condition Response Other Cancer N High Blood Pressure N Colon Cancer N Cytomegalovirus N Hyperthyroidism N MRSA N Blood Transfusion N Herpes (HSV) N Breast Cancer N Lung Cancer N Depression N Hypothyroidism N Incontinence N Panic Attacks N Neurological Disorder N Deep Vein Thrombosis N Anxiety Disorder N Autoimmune disease N Arthritis N Shingles N Tuberculosis/Positive PPD N Polycystic Ovarian Syndrome N Cervical Cancer N Chlamydia N Hematuria N Stroke N Varicosities N Seasonal allergies N Crohn's Disease N Alzheimer's/Dementia N COPD/Emphysema N Endometriosis N HPV/Genital Warts N IBS (Irritable Bowel Syndrome) N History of Abnormal Pap N High Cholesterol N Liver Disease N Kidney Infection N Fibromyalgia N Ulcer N Kidney Disease N HIV N Gallbladder disease N Von Willebrand disease N Sickle Cell Disease/Trait N ADD/ADHD N Eating Disorder N Diabetes Mellitus (non-insulin dependent ) N Anemia N Ovarian Problems N Multiple Sclerosis N Gonorrhea N Frequent Urinary Tract infections N Osteopenia N Headaches/migraines N GERD (reflux) N Ovarian Cancer N Diabetes (insulin dependent) N Seizures/Epilepsy N Fibroids N Asthma N Heart Attack N Endometrial Cancer N Lupus N Rubella N Blood Clotting Disorder N Bipolar Disorder N Diabetes Mellitus (during ) N Ulcerative Colitis N Hepatitis N Heart Disease N Pulmonary Embolism N RPR N Chicken Pox N Osteoporosis N Gynecological History Statement/Question Response Date of LMP 06/22/2022 HPV Vaccine N Date of Last Pap Smear 11/19/2021 Most Recent Mammogram Current Control Method None Age at Menarche 9 Obstetrics History GPAL:G 0 P 0 0 0 0 Past Encounters Encounter ID Performer Location Encounter Start Date Encounter Closed Date Diagnosis/Indication Diagnosis SNOMED-CT Code Diagnosis ICD10 Code Diagnosis IMO Codes Diagnosis Note [id number] Daphne Bharti López MD [address] [address] 11/19/2021 13:23:38 11/19/2021 16:14:32 Gynecologic examination 42908247 Z01.419 declines contracept ion. States she doesn't like the way it makes her feel. Recommed PNV daily. Screening for malignant neoplasm of cervix 762809911 Z12.4 Dysuria 54388477 R30.9 [id number] OLENA RODRIGUEZ MD [address] [address] 02/11/2022 14:04:36 02/11/2022 16:04:27 Venereal disease screening 063360728 Z11.3 Contracept ion care management 024781811 Z30.9 [id number] OLENA RODRIGUEZ MD [address] [address] 03/07/2022 16:09:40 03/10/2022 13:15:40 Low grade squamous intraepithelial lesion on cervical Papanicolaou smear [id number] 9105 R87.612 Surveillan ce of contraception [id number] Z30.40 [id number] DEYSI Gurrola [facility] [address] [place] [address] 07/02/2022 14:23:52 07/02/2022 14:51:36 Infection screening [id number] Z11.9 Education about sexually transmitted disease prevention [id number] Z70.8 Discussed the various types of STDs, related symptoms and the potential consequenc es (including effects on fertility) of STD infections . Reviewed ways to limit exposure and prevention techniques . Health Concerns Section Related Observation LastModified by Organization Detai ls LastModified Time None Recorded Concern Status LastModified by Organization Details LastModified Time None Recorded Advance Directives Directive None Recorded Payers Insurance Date Sequence Insurance Name Policy Number Policy Garcia Covered Member ID Garcia Member ID Guarantor Name 06/05/2023 1 [employer] - OPEN ACCESS [id number] Adams Garcia [id number] OI Romulo Garcia 11/27/2022 1 [employer] - OPEN ACCESS Adams Garcia [id number] Romulo Garcia 06/05/2023 2 [place] [id number] Romulo Garcia [id number] Romulo Garcia Notes Date Note Type Note Provider Name and Address Organization Details Recorded Time 2 text/html Annual GYNReported by PatientHistoryFor history, patient reportsno gynecologic complaints.Genitourinary symptomsFor menstrual cycle, patient reportsnormal menses. For urinary symptoms, patient reportsno hematuriaandno incontinence. For vulva, patient reportsno genital lesion. For vagina, patient reportsnormal vaginal discharge.Breast symptomsFor breast, patient reportsno breast pain,no breast lump, andno nipple discharge.Endocrine symptomsFor sexual complaints, patient reportsno sexual complaints,no pain during intercourse, andnormal libido.Psychological symptomsFor psychological symptoms, patient reportsno depressionandno anxiety.Preventative measuresFor preventive measures, patient reportsencourage self breast examinationandencourage regular exercise. Romulo here for annual well women visit Daphne López MD [address] [facility] [address] [facility], [place], [address], [facility] [employer] 11/19/2021 14:48:56 2 text/html STD screeningReported by PatientDischargeFor associated symptoms, patient reportsno vaginal itching,no vaginal burning,no swelling/redness,no fever/chills,no diarrhea,no abdominal pain,no pelvic pain,no vaginal pain,no pain during urination,no pain during intercourse,no vaginal lump,no genital lesion,no sexually transmitted disease, andno fever. Desires STI screenNo BC, no regular use of condoms.Partner x 2 monthsLSIL pap, no colpo yet OLENA THANAPANDIAN , MD [address] [facility] [address] [facility], [place], [address], [facility] [employer] 02/11/2022 14:53:37 2 text/html ROS as noted in the HPI Kamil is here for today for Colpo due to LSIL papno other concerns todaypap preformed on 11/19/2021.STI screen 02/11 negHasn't started on BC patch yet.UPT neg today OLENA RODRIGUEZ MD [address] [facility] [address] [facility], [place], [address], [facility] [employer] 03/08/2022 15:38:05 2 text/html ROS as noted in the HPI Kamil presents for STD testing. LGSIL pap 12/01/21. Colpo 03/06/22 Benign. She is currently on Nuva Ring for control. She had vaginal discharge 3 weeks ago and took Monistat OTC. This relieved her sx. She denies vaginal itching/burning/discharge/o gogo. She denies urinary sx DEYSI Gurrola [address] [facility] [address] [facility], [place], [address], [facility] [employer] 07/02/2022 15:05:02 OBGyn Episode No OBEpisode recorded.
--- OUTSIDE RECORDS SUMMARY | 2025-07-03 16:51 | XMS_ITS | Clinical Summary ---
Author Organization [facility] Address [address] [place] [address] Care Team Providers Care Ammunition Assembly I Laborer Name Role Phone Gio Ureña MD Primary Care Provider [phone] Allergies Active Allergy Reactions Criticality Noted Date Comments Azithromycin Hives,Swelling Medium 04/14/2011 Medications NUVARING 0.12-0.015 mg/24 hr vaginal ring Insert 1 each into the vagina every 28 (twenty-eight) days 3 9 Active triamcinolone (KENALOG) 0.1 % cream Apply 1 application topically 2 (two) times a day as needed 1 9 Active amoxicillin 500 mg capsule TAKE ONE CAPSULE BY MOUTH EVERY 6 HOURS UNTIL ALL TAKEN 1 Active Active Problems Problem Noted Date Diagnosed Date Neck mass 01/09/2021 Overview (01/09/2021): Added automatically from request for surgery [id number] Scoliosis deformity of spine 02/28/2011 Immunizations Immunization Administration Dates Next Due Pfizer SARS-CoV-2 Monovalent Vaccination (12+ Yrs) PURPLE 10/23/2020,09/25/2020 Surgical History Surgery Date Site/Laterality Comments BACK SURGERY 11/11/2011 - 12/11/2011 Back Surgery - (Added by [facility] Conv), rods x 2 present, [facility] MYRINGOTOMY W/ TUBES 07/13/1999 - 07/12/2000 BIOPSY 02/25/2019 MDL with excision VC (benign) (AT [facility]) TOE SURGERY 07/13/2018 - 07/12/2019 patient states has surgery to remove a wart from toe does remember which one toe or which foot. Medical History Medical History Date Comments Eczema Scoliosis Scoliosis - (Add ed by TW Conv) see surgery Arrhythmia [address] Ureña in epic patient sent to cardiology stress test done 01/2019 see epic for report, denies any issues at present 01/29/21 Allergic rhinitis not on any med ications states patient Neck mass 01/29/21 right si de of neck patient complete antibiotics, seeing Dr Alas Immunization series complete cov id vaccine completed pt will bring in card on 02/01/21 Last menstrual period (LMP) > 10 days ago 01/18/2021 Wears glasses wear glasses or contacts Family History Medical History Relation Name Comments Hypertension Father Family history of hypertension - (Added by [employer] Conv) Hypertension Maternal Grandfather Family history of hypertension - Relation: Grandfather (Added by [employer] Conv) Lung cancer Maternal Grandmother Family history of lung cancer - (Added by [employer] Conv) Diabetes Maternal Great-Grandmother F amily history of diabetes mellitus - (Added by [employer] Conv) Heart disease Maternal Great-Grandmother Family history of cardiac disorder - (Added by TW Conv) Hyperlipidemia Mother's Brother Family hi story of hyperlipidemia - (Added by [employer] Conv) Hypertension Other Family history of hypertension - Relation: Grandmother (Added by [employer] Conv) Relation Name Status Comments Father Maternal Grandfather Maternal Grandmother Maternal Great-Grandmother Mother's Brother Other Social History Tobacco Use Types Packs/Day Years Used Date Smoking Tobacco: Never Smokeless Tobacco: Never Alcohol Use Standard Drinks/Week Comments Never 0 (1 standard drink = 0.6 oz pur e alcohol) AUDIT-C Answer Date Recorded Q1: How often do you have a drink containing alc ohol? 2-4 times a month 01/29/2021 Q2: How many drinks containi ng alcohol do you have on a typical day when you are drinking? 5 or 6 01/29/2021 Q3: How often do you have si x or more drinks on one occasion? Weekly 01/29/2021 Personal Safety Answer Date Recorded Getting School Help Needed Not on file 09/06 Comments No Sex and Gender Information Value Date Recorded Sex Assigned at Not on file Legal Sex Female 3:27 AM [employer] Gender Identity Not on file Sexual Orientation Not on file Obstetrics History Para Term AB IAB SAB Ectopic Multiple Livin g Live Births 0 0 0 0 0 0 0 0 0 0 0 Last Filed Vital Signs Vital Sign Reading Time Taken Comments Blood Pressure 127/85 02/25/2019 7:48 AM CDT Pulse 108 02/25/2019 7:48 AM CDT Temperature 36.9 C (98.4 F) 02/25/2019 7:48 AM CDT Respiratory Rate 17 01/29/2021 1:59 PM CDT Oxygen Saturation 100% 02/25/2019 7:48 AM CDT Inhaled Oxygen Concentration - - Weight 73.5 kg (162 lb) 01/29/2021 1:59 PM CDT Height 158.8 cm (5' 2.5) 01/29/2021 1:59 PM CDT Body Mass Index 29.16 01/29/2021 1:59 PM CDT Plan of Treatment Not on file Insurance [email or web address] [facility] [id number] [facility] [id number] Care Teams Ammunition Assembly I Laborer Relationship Specialty Start Date End Date Gio Ureña MD [address] [facility] [address] [place] [address] PCP - General Internal Medicine 12/19/20
--- OUTSIDE RECORDS SUMMARY | 2025-07-03 16:51 | XMS_ITS | Clinical Summary ---
Author Organization [facility] Address [address] [place] [address] Care Team Providers Care Clicker Operator Name Role Phone Unavailable Primary Care Provider Unavailabl e Social History Tobacco Use Types Packs/Day Years Used Date Smoking Tobacco: Never Assessed Comments Unknown Sex and Gender Information Value Date Recorded Sex Assigned at Not on file Legal Sex Female 5:51 PM CDT Gender Identity Not on file Sexual Orientation Not on file Plan of Treatment Health Maintenance Due Date Last Done Comments Cervical Cancer Screening Pa p Smear (Age 21 to 29) Every 3 Years 1998 Cervical Cancer Screening 1998 Annual Physical 2001 HPV Vaccines (1 - 3-dose series) 2013 Hepatitis C 2016 DTaP, Tdap and Td Vaccines ( 1 - Tdap) 2017 Hepatitis B Vaccines (1 of 3 - 19+ 3-dose series) 2017 COVID-19 Vaccine (2024-2 6 season) 2025 Influenza Adult (#1) 2025 Hepatitis A Vaccines Aged Out No long er eligible based on patient's age to complete this topic Meningococcal B Vaccine Aged Out No l onger eligible based on patient's age to complete this topic Meningococcal Vaccine Aged Out No isaias jose eligible based on patient's age to complete this topic Pneumococcal Vaccine: Pediat rics (0 to 5 Years) and At-Risk Patients (6 to 49 Years) Aged Out No longer eligible b ased on patient's age to complete this topic RSV Immunizations Under 20 Months Aged Out No longer eligible based on patient's age to complete this topic
--- OUTSIDE RECORDS SUMMARY | 2025-07-03 16:51 | XMS_ITS | Clinical Summary ---
Author Organization [employer] Address [address] [place] [address] Care Team Providers Care Cnc Lathe Programmer Name Role Phone Pcp, No Primary Care Provider [phone] Allergies Active Allergy Reactions Criticality Noted Date Comments Azithromycin Hives,Swelling Medium 04/14/2011 Medications No known medications Social History Tobacco Use Types Packs/Day Years Used Date Smoking Tobacco: Never Assessed Comments Unknown Sex and Gender Information Value Date Recorded Sex Assigned at Not on file Legal Sex Female 11:30 AM EST Gender Identity Not on file Sexual Orientation Not on file Last Filed Vital Signs Vital Sign Reading Time Taken Comments Blood Pressure - - Pulse 84 08/29/2020 2:50 PM PRODUCTION CONTROL PLANNER Temperature - - Respiratory Rate - - Oxygen Saturation 96% 08/29/2020 2:50 PM PRODUCTION CONTROL PLANNER Inhaled Oxygen Concentration - - Weight - - Height - - Body Mass Index - - Plan of Treatment Not on file Medical Devices Not on file Insurance [place] [employer] Care Teams Cnc Lathe Programmer Relationship Specialty Start Date End Date Pcp, Alma PCP - General Family Medicine 10/23/21
== END 2025-07-03 15:13 | disposition home or self-care (01) ==
PROVIDERS: PCP Internal Medicine
DX: O20.0 Threatened abortion (principal); Z3A.01 Less than 8 weeks gestation of pregnancy
CPT/HCPCS: 76801; 76817